=== PATIENT | female | born 1960 | race Caucasian/White ===

== ENCOUNTER 2017-04-06 14:48 | Emergency (ER) | payer OTHER ==
[2017-04-06] MEDS ORDERED: Ondansetron INJ* 2 MG/ML VIAL IV ONE (15:42)
[2017-04-06] MEDS: NS 0.9% 1000 ML* 2,000 ML IV ONE (16:09)
[2017-04-06 16:14] LABS: Hematocrit 42 % (35-47); Hemoglobin 14.5 g/dl (12.0-16.0); Mean Corpuscular HGB Conc 34 g/dl (31-36); Mean Corpuscular Hemoglobin 33 pg (27-31); Mean Corpuscular Volume 96 fL (80-97); Mean Platelet Volume 9 um3 (7.4-10.4); Red Blood Count 4.38 10^6/ul (4.0-5.4); Red Cell Distribution Width 14 % (10.5-15); White Blood Count 8.5 10^3/ul (3.5-10.8)
[2017-04-06 16:29] LABS: Albumin 3.1 g/dL (3.2-5.2); BUN/Creatinine Ratio 18.5 (8-20); C Reactive Protein 3.81 mg/L (< 5.00); Calcium 7.9 mg/dL (8.6-10.3); EGFR African American 94.8 (>60); EGFR Non-African American 73.7 (>60); Globulin 2.7 g/dL (2-4); Potassium 3.6 mmol/L (3.5-5.0); Total Bilirubin 2.7 mg/dL (0.2-1.0); Total Protein 5.8 g/dL (6.4-8.9)
--- NOTE | 2017-04-06 18:22 | RAD ---
HISTORY: Nausea vomiting and elevated liver enzymes COMPARISONS: None TECHNIQUE: Multiple transverse and longitudinal ultrasound images were obtained of the right upper quadrant. FINDINGS: LIVER: The liver exhibits homogenous increased echogenicity without suspicious focal mass or surface irregularity.. Normal hepatic and portal venous blood flow is duplicated with color flow imaging. There is no gross intrahepatic biliary duct dilatation. GALLBLADDER AND EXTRAHEPATIC BILIARY DUCT: Within the gallbladder lumen there is at least one 2.1 cm echogenic mobile stone. There is no pericholecystic fluid or gallbladder wall thickening. The common bile duct measures a maximum diameter of 5 mm. PANCREAS: The portions of the pancreas not obscured by bowel gas are normal in appearance. RIGHT KIDNEY: The right kidney is normal in size, morphology and echogenicity. AORTA AND IVC: The visualized portions are normal in appearance and not pathologically dilated. IMPRESSION: 1. Cholelithiasis without signs of biliary obstruction or acute inflammatory change. 2. Homogenously increased echogenicity of the liver could be seen in the setting of hepatic steatosis or other chronic infiltrative disease of the liver.
--- NOTE | 2017-04-06 18:53 | ED ---
Ady Martinez Abhishek, scribed for Lazaro Cazares MD on 04/06/17 at 1524 . Abdominal Pain/Female - HPI Summary HPI Summary: This patient is a 56 year old F presenting to [facility] with a chief complaint of abd pain since a few weeks. Pt states that C. Diff was tested recently and test is negative. The patient rates the pain 5/10 in severity. Symptoms aggravated by nothing. Symptoms alleviated by nothing. Blood test showed creatinine was elevated. Patient reports N/V (once last night and previously before), back pain , soft stool, and decreased appetite. Patient denies diarrhea. - History of Current Complaint Chief Complaint: EDAbdPain Stated Complaint: N/V Time Seen by Provider: 04/06/17 15:11 Onset/Duration: Gradual Onset, Lasting Weeks - few weeks ago, Still Present Timing: Constant Severity Initially: Moderate Severity Currently: Moderate Pain Intensity: 5 Pain Scale Used: 0-10 Numeric Aggravating Factor(s): Nothing Alleviating Factor(s): Nothing Associated Signs and Symptoms: Positive: Back Pain, Nausea, Vomiting, Other: - soft stool. Negative: Diarrhea Allergies/Adverse Reactions: Allergies Allergy/AdvReac Type Severity Reaction Status Date / Time Bacitracin [From Neosporin] Allergy Rash Verified 10/29/16 14:11 Latex Allergy Rash Verified 10/29/16 14:11 Neomycin [From Neosporin] Allergy Rash Verified 10/29/16 14:11 Polymyxin B [From Neosporin] Allergy Rash Verified 10/29/16 14:11 tapes Allergy Rash Uncoded 10/25/16 14:53 PMH/Surg Hx/FS Hx/Imm Hx Endocrine/Hematology History: Denies: Hx Diabetes Cardiovascular History: Reports: Hx Hypertension - ON MEDS Denies: Hx Pacemaker/ICD History: Denies: Hx Renal Disease Musculoskeletal History: Reports: Hx Arthritis, Other Musculoskeletal History - costochondritis Sensory History: Reports: Hx Contacts or Glasses Denies: Hx Hearing Aid Opthamlomology History: Reports: Hx Contacts or Glasses Neurological History: Reports: Hx Migraine Psychiatric History: Denies: Hx Panic Disorder - Cancer History Cancer Type, Location and Year: SKIN CARCINOMA FACE/ARMS/LEG. PRECANCEROUS CERVICAL Hx Chemotherapy: No Hx Radiation Therapy: No - Surgical History Surgery Procedure, Year, and Place: TMJ repair [place]. [place] [facility] [place] [facility] [place]ious Disease History: No Infectious Disease History: Reports: Hx Clostridium Difficile Denies: Traveled Outside the [place] in Last 30 Days - Family History Known Family History: Positive: Other - Blood cancer (sister) Negative: Cardiac Disease, Hypertension, Diabetes - Social History Alcohol Use: Occasionally Substance Use Type: Reports: None Hx Tobacco Use: No Smoking Status (MU): Never Smoked Tobacco Have You Smoked in the Last Year: No Review of Systems Constitutional: Negative Eyes: Negative ENT: Negative Cardiovascular: Negative Respiratory: Negative Positive: Abdominal Pain, Diarrhea, Nausea, Other - soft stool, and decreased appetite. Negative: Vomiting Genitourinary: Negative Positive: Other - back pain Skin: Negative Neurological: Negative Psychological: Normal All Other Systems Reviewed And Are Negative: Yes Physical Exam - Summary Physical Exam Summary: VITAL SIGNS: Reviewed. GENERAL: Patient is a well-developed and nourished female who is lying comfortable in the stretcher. ~Patient is not in any acute respiratory distress. HEAD AND FACE: Normocephalic and atraumatic. EYES: PERRLA, EOMI x 2, No injected conjunctiva. EARS: Hearing grossly intact. Ear canals and tympanic membranes are WNL. MOUTH: Oropharynx within normal limits. NECK: Supple, trachea is midline, no adenopathy, no JVD. CHEST: Symmetric, no tenderness at palpation LUNGS: Clear to auscultation bilaterally. No wheezing or crackles. CVS: RRR, S1 and S2 present, no murmurs or gallops appreciated. ABDOMEN: Soft, non-tender. No signs of distention. Positive bowel sounds. No rebound no guarding, and no masses palpated. No abdominal bruit or pulsations. EXTREMITIES: FROM in all major joints, no edema, no cyanosis or clubbing. NEURO: Alert and oriented x 3. No acute neurological deficits. Speech is normal. SKIN: Dry and warm Triage Information Reviewed: Yes Vital Signs On Initial Exam: Initial Vitals Temp Pulse Resp BP Pulse Ox 97.2 F 118 18 150/98 97 04/06/17 14:50 04/06/17 14:50 04/06/17 14:50 04/06/17 14:50 04/06/17 14:50 Vital Signs Reviewed: Yes - [place] Coma Scale Coma Scale Total: 15 Diagnostics - Vital Signs Vital Signs Temp Pulse Resp BP Pulse Ox 04/06/17 14:50 97.2 F 118 18 150/98 97 - Laboratory Lab Results: Lab Results 04/06/17 04/06/17 Range/Units 15:55 15:55 WBC 8.5 (3.5-10.8) 10^3/ul RBC 4.38 (4.0-5.4) 10^6/ul Hgb 14.5 (12.0-16.0) g/dl Hct 42 (35-47) % MCV 96 (80-97) fL MCH 33 H (27-31) pg MCHC 34 (31-36) g/dl RDW 14 (10.5-15) % Plt Count 243 (150-450) 10^3/ul MPV 9 (7.4-10.4) um3 Neut % (Auto) 76.3 (38-83) % Lymph % (Auto) 14.9 L (25-47) % Desha % (Auto) 7.7 (1-9) % Eos % (Auto) 0.1 (0-6) % Baso % (Auto) 1.0 (0-2) % Absolute Neuts (auto) 6.5 (1.5-7.7) 10^3/ul Absolute Lymphs (auto) 1.3 (1.0-4.8) 10^3/ul Absolute Monos (auto) 0.7 (0-0.8) 10^3/ul Absolute Eos (auto) 0 (0-0.6) 10^3/ul Absolute Basos (auto) 0.1 (0-0.2) 10^3/ul Absolute Nucleated RBC 0 10^3/ul Nucleated RBC % 0 Sodium 137 (133-145) mmol/L Potassium 3.6 (3.5-5.0) mmol/L Chloride 101 (101-111) mmol/L Carbon Dioxide 27 (22-32) mmol/L Anion Gap 9 (2-11) mmol/L BUN 15 (6-24) mg/dL Creatinine 0.81 (0.51-0.95) mg/dL Est GFR ( Amer) 94.8 (>60) Est GFR (Non-Af Amer) 73.7 (>60) BUN/Creatinine Ratio 18.5 (8-20) Glucose 114 H (70-100) mg/dL Calcium 7.9 L (8.6-10.3) mg/dL Total Bilirubin 2.70 H (0.2-1.0) mg/dL AST 591 H (13-39) U/L ALT 446 H (7-52) U/L Alkaline Phosphatase 84 (34-104) U/L C-Reactive Protein 3.81 (< 5.00) mg/L Total Protein 5.8 L (6.4-8.9) g/dL Albumin 3.1 L (3.2-5.2) g/dL Globulin 2.7 (2-4) g/dL Albumin/Globulin Ratio 1.1 (1-3) Lipase 20 (11.0-82.0) U/L Result Diagrams: 04/06/17 15:55 04/06/17 15:55 Lab Statement: Any lab studies that have been ordered have been reviewed, and results considered in the medical decision making process. - Ultrasound No standard instances Ultrasound Interpretation Completed By: Radiologist - Gallbladder US reveals 1. Cholelithiasis without signs of biliary obstruction or acute inflammatory change. 2. Homogenously increased echogenicity of the liver could be seen in the setting of hepatic steatosis or other chronic infiltrative disease of the liver. ED physician has reviewed this radiology report and agrees. Abdominal Pain Fem Course/Dx - Course Course Of Treatment: In the ED course an IV access was obtained. Patient was placed in a director of market intelligence. Patient was started with IV fluids. SHe was given Zofran for nausea and vomiting. Labs without any significant abnormality except for increased LDT. Corrected Calcium is normal. DUe to increased LFTs I order a hepatitis panel and it pending results. U/S shows no acute pathology. Full reports as above. After hydration and Zofran her symptoms resolved. Patient has an appointment with GI therefore she was strongly recommended to keep appointment. I discussed all the findings and test results with the patient. Patient was instructed to return to the emergency room immediately if any of the symptoms return or worsens. Plan of care was discussed with the patient and understands and agrees. All questions were answered at patient satisfaction. There were no further complaints or concerns. Lung exam before discharge: CTA B/L. Good air exchange. No wheezing or crackles heard. CVS: S1 and S2 present. No murmurs appreciated. Patient is alert and oriented x 3. Patient is hemodynamically stable. Patient will be discharged home with follow up PCP in the next 2-3 days - Diagnoses Provider Diagnoses: Nausea & vomiting, Dehydration, Abnormal liver function test Discharge - Discharge Plan Condition: Stable Disposition: HOME Prescriptions: Ondansetron TAB* [Zofran 4 MG Tab*] 4 mg PO Q6H PRN #10 tab PRN Reason: Vomiting Patient Education Materials: Dehydration (ED), Acute Nausea and Vomiting (ED) Referrals: Jordyn Lion MD [Medical Doctor] - (Follow up with PCP as needed) Additional Instructions: Patient also showed abnormal Liver function tests The documentation as recorded by the Ady hewitt Abhishek accurately reflects the service I personally performed and the decisions made by , Lazaro Cazares MD.
[2017-04-06 19:01] VITALS: BP 119/67
== END 2017-04-06 19:01 | disposition home or self-care (01) ==
LOC: ED 14:48
DX: R11.2 Nausea with vomiting, unspecified (principal); E86.0 Dehydration; R79.89 Other specified abnormal findings of blood chemistry; I10 Essential (primary) hypertension; K80.20 Calculus of gallbladder without cholecystitis without obstruction
CPT/HCPCS: 36415; 76705; 80053; 80074; 83690; 85025; 86140; 96360; 96374; 99282; J2405

== ENCOUNTER 2017-07-29 12:05 | Emergency (ER) | payer OTHER ==
[2017-07-29 12:29] VITALS: BP 124/87
--- NOTE | 2017-07-29 13:07 | RAD ---
INDICATION: Medial RIGHT hand pain and swelling following injury one week ago. Previous fracture in same region in 2005. COMPARISON: September 18, 2006 TECHNIQUE: AP, lateral, and oblique views RIGHT hand. REPORT: Normal articular alignment. Skin marker over the dorsal aspect of the diaphysis of the fifth metacarpal corresponding with the site of a healed fracture with apex dorsal ulnar angulation. No fracture evident. Mild dorsal ulnar soft tissue swelling at the level of the fifth metacarpal. IMPRESSION: Soft tissue swelling without evidence for a new fracture.
--- NOTE | 2017-07-29 13:55 | UC ---
Mauricio Martinez Jennifer, scribed for Karmen Escoto MD on 07/29/17 at 1311 . Hand/Wrist HPI - HPI Summary HPI Summary: The patient is a 56 year old female who presents with right hand injury, injury occurred in the last few days. Here today because she wants to see if there is a new fracture. The patient reports she broke her right hand 7-8 years ago. A few days ago, she hit the right side of her right hand on the side of the washing machine while struggling to pull a pair of jeans out. The patient states there is a lump on her hand that she is concerned of, especially since she is right-handed. The patient states she tried to bandage her hand, but it has been hurting no matter what she does. The patient denies elbow pain, although she states sometimes that hand pain can radiate up to her elbow. - History Of Current Complaint Chief Complaint: UCHeadInjury Stated Complaint: HAND INJURY Time Seen by Provider: 07/29/17 12:48 Hx Obtained From: Patient Mechanism Of Injury: Hit hand on side of washing machine as she was struggling to pull a pair of jeans out Onset/Duration: Sudden Onset, Lasting Days - few days, Still Present, Worse Since Severity Initially: Moderate Severity Currently: Moderate Pain Intensity: 6 Pain Scale Used: 0-10 Numeric Alleviating Factor(s): Nothing Associated Signs And Symptoms: Positive: Swelling - Allergies/Home Medications Allergies/Adverse Reactions: Allergies Allergy/AdvReac Type Severity Reaction Status Date / Time adhesive tape Allergy Rash Verified 07/29/17 12:29 bacitracin Allergy Rash Verified 07/29/17 12:29 [From Neosporin ([id number])] latex Allergy Rash Verified 07/29/17 12:29 neomycin Allergy Rash Verified 07/29/17 12:29 [From Neosporin ([id number])] polymyxin B Allergy Rash Verified 07/29/17 12:29 [From Neosporin ([id number])] tapes Allergy Rash Uncoded 10/25/16 14:53 PMH/Surg Hx/FS Hx/Imm Hx - Additional Past Medical History Additional PMH: C. diff Previously Healthy: No - see hpi. Neurological History: CVA - September 2016 - Surgical History Surgical History: Yes Surgery Procedure, Year, and Place: TMJ repair [place]. RIGHT achillies tendon [place] [facility] [place] [facility] [place] - Family History Known Family History: Positive: Other - Blood cancer (sister) Negative: Cardiac Disease, Hypertension, Diabetes - Social History Alcohol Use: Occasionally Substance Use Type: None Smoking Status (MU): Never Smoked Tobacco Have You Smoked in the Last Year: No Review of Systems Constitutional: Negative - Fever Skin: Negative Eyes: Negative ENT: Negative Respiratory: Negative Cardiovascular: Negative Gastrointestinal: Negative Genitourinary: Negative Motor: Decreased ROM Neurovascular: Other - see hpi Musculoskeletal: Other: - Swelling of right hand Neurological: Negative Psychological: Negative Is Patient Immunocompromised?: Yes All Other Systems Reviewed And Are Negative: Yes Physical Exam - Summary Physical Exam Summary: Appearance: Well-Nourished Eye Exam: Normal ENT Exam: Normal Respiratory Exam: Normal, no dyspnea, no tachypnea, normal respiratory rate Cardiovascular Exam: Normal Cardiovascular: Heart rate regular, good general skin color, good capillary refill Abdominal Exam: Normal Abdomen Description: Nontender, No Organomegaly, Soft Bowel Sounds: Present Musculoskeletal Exam: Grossly normal except R hand + swelling and pain over the dorsal R metacarpal area. + deformity. Not hot to touch or red at site of tenderness. Moves all 5 fingers, good clench, FROM wrist. + R / U pulses present. CR < 2 sec x 5 digits. Neurological Exam: Moves x 4 ext's. L facial droop, pt reports present since CVA last spring. Psychological Exam: Normal: conversing easily and appropriately Skin Exam: Normal: no visible or reported rash Triage Information Reviewed: Yes Appearance: Well-Appearing, Well-Nourished Vital Signs: Initial Vital Signs Temp 97.8 F 07/29/17 12:24 Pulse 112 07/29/17 12:24 Resp 18 07/29/17 12:24 BP 124/87 07/29/17 12:24 Pulse Ox 100 07/29/17 12:24 Vital Signs Reviewed: Yes Eye Exam: Normal - grossly normal ENT Exam: Other - visual inspection - Left facial droop, pt reports since spring 2016. Diagnostics - Radiology Hand XR Xray Interpretation: No Acute Changes - Soft tissue swelling without evidence for a new fracture. Dr. Escoto has reviewed this report. Radiology Interpretation Completed By: Radiologist Hand/Wrist Course/Dx - Course Course Of Treatment: Ms. Post has seen Dr. Ambriz in the past for her hand. She would like to see her again, will schedule appt. We reviewed the X-ray, no acute fracture. There is an old fracture R 5th . Report in [facility]. We discussed ulnar gutter splint (fiberglass), but she would rather have something that she can remove on her own. As such, cockup splint was placed by RN. Ms. Post likes it, as it will decrease general hand motion. Questions as posed answered to the best of my ability. - Differential Dx/Diagnosis Provider Diagnoses: Right hand contusion in the setting of previous hand (5th ) fx. Discharge - Discharge Plan Condition: Stable Disposition: HOME Patient Education Materials: Contusion in Adults (ED) Referrals: Reanna Truong NP [Primary Care Provider] - Additional Instructions: Your blood pressure was a little elevated during today's visit, 124/87. Please follow up with your primary care provider in 1-2 weeks. Follow up with your orthopedic surgeon, Dr. Parry, per routine for your shoulder. Follow up with your hand doctor, Dr. Ambriz, for your Right hand discomfort. Recommend in the next week if possible. Splint as needed for comfort. Seek medical attention for worse or new problems in the meantime. The documentation as recorded by the Mauricio hewitt Jennifer accurately reflects the service I personally performed and the decisions made by me, Karmen Escoto MD.
== END 2017-07-29 13:32 | disposition home or self-care (01) ==
LOC: UCEAST 12:05
DX: S60.221A Contusion of right hand, initial encounter (principal); W22.09XA Striking against other stationary object, initial encounter; Y93.E2 Activity, laundry; Y92.9 Unspecified place or not applicable; Z88.3 Allergy status to other anti-infective agents; Z91.040 Latex allergy status; Z91.048 Other nonmedicinal substance allergy status
CPT/HCPCS: 99212; G0463

== ENCOUNTER 2017-11-11 09:53 | Observation (INO) | payer OTHER ==
[2017-11-11 11:15] LABS: ABS Basophils 0 10^3/ul (0-0.2); ABS Eosinophils 0.1 10^3/ul (0-0.6); ABS Lymphocytes 1.4 10^3/ul (1.0-4.8); ABS Monocytes 0.5 10^3/ul (0-0.8); ABS Neutrophils 6.2 10^3/ul (1.5-7.7); ABS Nucleated RBC 0 10^3/ul; Hematocrit 44 % (35-47); Lymphocyte % 17.4 % (25-47); Mean Corpuscular HGB Conc 34 g/dl (31-36); Mean Corpuscular Hemoglobin 35 pg (27-31); Mean Corpuscular Volume 102 fL (80-97); Mean Platelet Volume 7.8 um3 (7.4-10.4); Nucleated Red Blood Cells % 0.1; Platelet Count 257 10^3/ul (150-450); Red Blood Count 4.36 10^6/ul (4.00-5.40); Red Cell Distribution Width 17 % (10.5-15); White Blood Count 8.3 10^3/ul (3.5-10.8)
[2017-11-11 11:23] LABS: INR 0.9 (0.77-1.02)
--- NOTE | 2017-11-11 11:33 | RAD ---
Indication: Weakness. 2 views of the chest are reviewed. No mediastinal shift is noted. Heart is of normal size and configuration. Lung tavarez are clear. IMPRESSION: No active cardiopulmonary disease is noted.
--- NOTE | 2017-11-11 11:34 | RAD ---
Indication: Numb hands and feet. CT of the brain was performed without IV contrast. Ventricular structures are midline. No midline shift is noted. The extra-axial spaces are unremarkable. There is no evidence of intracranial mass or hemorrhage. No other high or low density lesions are identified. Mastoid air cells and paranasal sinuses are otherwise unremarkable. IMPRESSION: No intracranial mass or hemorrhage is noted.
[2017-11-11] MEDS ORDERED: Magnesium Oxide TAB* 400 MG PO ONE (11:38)
--- NOTE | 2017-11-11 15:08 | ED ---
Keagan Martinez Simon, scribed for Rolly Medina on 11/11/17 at 1017 . Complex/Multi-Sys Presentation - HPI Summary HPI Summary: This patient is a 56 year old F presenting to [facility] with a chief complaint of bilateral numbness in feet, hands, and face since this AM upon waking. She notes the sx are still present. She endorses N/V/D. Pt denies CP, SOB, weakness , anxiety, depression and SI. Pt notes a recent stressor of being given an eviction notice 11/10/17. PMHx CVA a year ago, anxiety, C. Diff. - History Of Current Complaint Chief Complaint: EDGeneral Time Seen by Provider: 11/11/17 10:10 Hx Obtained From: Patient Onset/Duration: Gradual Onset, Lasting Hours, Still Present Timing: Constant, Hours Severity Currently: Moderate Severity Initially: Moderate Location: Negative Aggravating Factor(s): None noted Alleviating Factor(s): None noted Associated Signs And Symptoms: Positive: Nausea, Vomiting, Diarrhea, Other - bilater hand and feet, face numbness and tingling.. Negative: SOB, Chest Pain - Allergies/Home Medications Allergies/Adverse Reactions: Allergies Allergy/AdvReac Type Severity Reaction Status Date / Time adhesive tape Allergy Rash Verified 11/11/17 10:00 bacitracin Allergy Rash Verified 11/11/17 10:00 [From Neosporin ([id number])] latex Allergy Rash Verified 11/11/17 10:00 neomycin Allergy Rash Verified 11/11/17 10:00 [From Neosporin ([id number])] polymyxin B Allergy Rash Verified 11/11/17 10:00 [From Neosporin ([id number])] tapes Allergy Rash Uncoded 11/11/17 10:00 Home Medications: Home Medications Aspirin EC TAB* [Ecotrin EC Low Dose 81 MG*] 81 mg PO DAILY 11/11/17 [History Confirmed 11/11/17] Calcium Polycarbophil TAB* [Fibercon TAB*] 625 mg PO DAILY 11/11/17 [History Confirmed 11/11/17] Cetirizine* [ZyrTEC 10 MG TAB*] 10 mg PO DAILY 11/11/17 [History Confirmed 11/11] Escitalopram (NF) [Lexapro 20 mg (NF)] 20 mg PO DAILY 11/11/17 [History Confirmed 11/11/17] Fluticasone NASAL SPRAY 50MCG* [Flonase NASAL SPRAY 50MCG*] 2 spray BOTH NARES DAILY 11/11/17 [History Confirmed 11/11/17] Fluticasone-Salmeterol 500-50* [Advair Diskus 500-50*] 1 puff INH BID 11/11/17 [ History Confirmed 11/11/17] Losartan/Hydrochlorothiazide [Losartan Potassium/Hydroc 50-12.5 mg] 1 tab PO DAILY 11/11/17 [History Confirmed 11/11/17] Multivitamins/Minerals TAB* [Theragran/minerals TAB*] 1 tab PO DAILY 11/11/17 [ History Confirmed 11/11/17] Omeprazole CAP* [Prilosec CAP* 20 MG] 20 mg PO DAILY 11/11/17 [History Confirmed 11/11/17] Potassium Chlor TAB* [Klor Con ER TAB*] 10 meq PO DAILY 11/11/17 [History Confirmed 11/11/17] Propranolol LA CAP* [Inderal LA CAP*] 60 mg PO DAILY 11/11/17 [History Confirmed 11/11/17] Saccharomyces Boulardii [Florastorkids] 250 mg PO BID 11/11/17 [History Confirmed 11/11/17] PMH/Surg Hx/FS Hx/Imm Hx Endocrine/Hematology History: Denies: Hx Diabetes Cardiovascular History: Reports: Hx Hypertension - ON MEDS Denies: Hx Pacemaker/ICD History: Denies: Hx Renal Disease Musculoskeletal History: Reports: Hx Arthritis, Other Musculoskeletal History - costochondritis Sensory History: Reports: Hx Contacts or Glasses Denies: Hx Legally Blind, Hx Deafness, Hx Hearing Aid Opthamlomology History: Reports: Hx Contacts or Glasses EENT History: Denies: Hx Deafness Neurological History: Reports: Hx CVA - pt reported, Hx Migraine Psychiatric History: Reports: Hx Anxiety Denies: Hx Panic Disorder - Cancer History Cancer Type, Location and Year: SKIN CARCINOMA FACE/ARMS/LEG. PRECANCEROUS CERVICAL Hx Chemotherapy: No Hx Radiation Therapy: No - Surgical History Surgery Procedure, Year, and Place: TMJ repair [facility]. RIGHT achillies tendon repair [facility]. left knee arthroscopy 02/27 [facility] Infectious Disease History: No Infectious Disease History: Reports: Hx Clostridium Difficile Denies: Traveled Outside the [place] in Last 30 Days - Family History Known Family History: Positive: Other - Blood cancer (sister) Negative: Cardiac Disease, Hypertension, Diabetes - Social History Alcohol Use: Occasionally Substance Use Type: Reports: None Hx Tobacco Use: No Smoking Status (MU): Never Smoked Tobacco Have You Smoked in the Last Year: No Review of Systems Negative: Fever Negative: Chest Pain Negative: Shortness Of Breath Positive: Vomiting, Diarrhea, Nausea Positive: Paresthesia, Numbness. Negative: Weakness Negative: Anxious, Other - SI All Other Systems Reviewed And Are Negative: Yes Physical Exam - Summary Physical Exam Summary: Appearance: Well appearing, no pain distress Skin: warm, dry, reflects adequate perfusion Head/face: normal Eyes: EOMI, STONE ENT: normal Neck: supple, non-tender Respiratory: CTA, breath sounds present Cardiovascular: RRR, pulses symmetrical Abdomen: non-tender, soft Bowel: present Musculoskeletal: normal, strength/ROM intact Neuro: motor intact, A&Ox3 Triage Information Reviewed: Yes Vital Signs On Initial Exam: Initial Vitals Temp Pulse Resp BP Pulse Ox 96.8 F 110 20 149/114 98 11/11/17 09:54 11/11/17 09:54 11/11/17 09:54 11/11/17 09:54 11/11/17 09:54 Vital Signs Reviewed: Yes Diagnostics - Vital Signs Vital Signs Temp Pulse Resp BP Pulse Ox 11/11/17 09:54 96.8 F 110 20 149/114 98 - Laboratory Lab Results: Lab Results 11/11/17 11/11/17 11/11/17 Range/Units 11:01 11:01 11:01 WBC 8.3 (3.5-10.8) 10^3/ul RBC 4.36 (4.00-5.40) 10^6/ul Hgb 15.0 (12.0-16.0) g/dl Hct 44 (35-47) % MCV 102 H (80-97) fL MCH 35 H (27-31) pg MCHC 34 (31-36) g/dl RDW 17 H (10.5-15) % Plt Count 257 (150-450) 10^3/ul MPV 7.8 (7.4-10.4) um3 Neut % (Auto) 74.5 (38-83) % Lymph % (Auto) 17.4 L (25-47) % Glenn % (Auto) 6.5 (0-7) % Eos % (Auto) 1.0 (0-6) % Baso % (Auto) 0.6 (0-2) % Absolute Neuts (auto) 6.2 (1.5-7.7) 10^3/ul Absolute Lymphs (auto) 1.4 (1.0-4.8) 10^3/ul Absolute Monos (auto) 0.5 (0-0.8) 10^3/ul Absolute Eos (auto) 0.1 (0-0.6) 10^3/ul Absolute Basos (auto) 0 (0-0.2) 10^3/ul Absolute Nucleated RBC 0 10^3/ul Nucleated RBC % 0.1 INR (Anticoag Therapy) 0.90 (0.77-1.02) APTT 27.9 (26.0-36.3) seconds Sodium 138 (135-145) mmol/L Potassium TNP Chloride 102 (101-111) mmol/L Carbon Dioxide 26 (22-32) mmol/L Anion Gap 10 (2-11) mmol/L BUN 9 (6-24) mg/dL Creatinine 0.78 (0.51-0.95) mg/dL Est GFR ( Amer) 93.1 (>60) Est GFR (Non-Af Amer) 77.0 (>60) BUN/Creatinine Ratio 11.5 (8-20) Glucose 116 H (70-100) mg/dL Calcium 8.5 L (8.6-10.3) mg/dL Magnesium 1.6 L (1.9-2.7) mg/dL Total Bilirubin 0.60 (0.2-1.0) mg/dL AST TNP ALT 18 (7-52) U/L Alkaline Phosphatase 86 (34-104) U/L Total Creatine Kinase 48 (10-223) U/L Troponin I 0.00 (<0.04) ng/mL Total Protein 6.4 (6.4-8.9) g/dL Albumin 3.4 (3.2-5.2) g/dL Globulin 3.0 (2-4) g/dL Albumin/Globulin Ratio 1.1 (1-3) 11/11/17 Range/Units 13:03 WBC (3.5-10.8) 10^3/ul RBC (4.00-5.40) 10^6/ul Hgb (12.0-16.0) g/dl Hct (35-47) % MCV (80-97) fL MCH (27-31) pg MCHC (31-36) g/dl RDW (10.5-15) % Plt Count (150-450) 10^3/ul MPV (7.4-10.4) um3 Neut % (Auto) (38-83) % Lymph % (Auto) (25-47) % Glenn % (Auto) (0-7) % Eos % (Auto) (0-6) % Baso % (Auto) (0-2) % Absolute Neuts (auto) (1.5-7.7) 10^3/ul Absolute Lymphs (auto) (1.0-4.8) 10^3/ul Absolute Monos (auto) (0-0.8) 10^3/ul Absolute Eos (auto) (0-0.6) 10^3/ul Absolute Basos (auto) (0-0.2) 10^3/ul Absolute Nucleated RBC 10^3/ul Nucleated RBC % INR (Anticoag Therapy) (0.77-1.02) APTT (26.0-36.3) seconds Sodium (135-145) mmol/L Potassium 3.6 Chloride (101-111) mmol/L Carbon Dioxide (22-32) mmol/L Anion Gap (2-11) mmol/L BUN (6-24) mg/dL Creatinine (0.51-0.95) mg/dL Est GFR ( Amer) (>60) Est GFR (Non-Af Amer) (>60) BUN/Creatinine Ratio (8-20) Glucose (70-100) mg/dL Calcium (8.6-10.3) mg/dL Magnesium (1.9-2.7) mg/dL Total Bilirubin (0.2-1.0) mg/dL AST 26 ALT (7-52) U/L Alkaline Phosphatase (34-104) U/L Total Creatine Kinase (10-223) U/L Troponin I (<0.04) ng/mL Total Protein (6.4-8.9) g/dL Albumin (3.2-5.2) g/dL Globulin (2-4) g/dL Albumin/Globulin Ratio (1-3) Result Diagrams: 11/11/17 11:01 11/11/17 13:03 Lab Statement: Any lab studies that have been ordered have been reviewed, and results considered in the medical decision making process. - Radiology CXR Xray Interpretation: No Acute Changes Radiology Interpretation Completed By: Radiologist - No active cardiopulmonary disease is noted. Dr. Medina has reviewed this report. - CT Head CT Interpretation Completed By: Radiologist - No intracranial mass or hemorrhage is noted. Dr. Medina has reviewed this report. - EKG 1038 Cardiac Rate: NL - 86 EKG Rhythm: Sinus Rhythm ST Segment: Normal EKG Comparison: No Significant Change National Institutes Of Health - NIH Scale Level of Consciousness: Alert/Keenly Responsive Ask Patient the Month and His/Her Age: Both Correct Ask Pt to Open/Close Eyes and Insurance Verification Specialist/Release Non-Paretic Hand: Both Correctly Best Gaze (Only Horizontal Eye Movement): Normal Visual Field Testing: No Visual Loss Facial Paresis-Pt to Smile & Close Eyes or Grimace Symmetry: Normal/Symmetrical Motor Function - Right Arm: No Drift-Holds 10 Seconds Motor Function - Left Arm: No Drift-Holds 10 Seconds Motor Function - Right Leg: No Drift-Holds 10 Seconds Motor Function - Left Leg: No Drift-Holds 10 Seconds Limb Ataxia-Must be out of Proportion to Weakness Present: Absent Sensory (Use Pinprick to Test Arms/Legs/Trunk/Face): Pinprick Less on Affected Best Language (Describe Picture, Name Items): No Aphasia Dysarthria (Read Several Words): Normal Extinction and Inattention: No Abnormality Total Score: 1 Complex Multi-Symp Course/Dx Course Of Treatment: A 56-year-old F presents to the ED with a CC of numbness since waking this AM. (+) N/V/D. (-) Anxiety, depression, SI, CP, SOB. A CXR was (-). An EKG reveals NSR, no acute changes. A CT brain was (-). In the ED course, pt was given MgO. Blood work/UA obtained. Dr. Gilmore, [id number], reccomended admit for stroke work-up. - Diagnoses Differential Diagnoses/HQI/PQRI: CVA, Other - intra cerebral bleeding Provider Diagnoses: TIA (transient ischemic attack) - Physician Notifications Discussed Care Of Patient With: Lewis Gilmore Time Discussed With Above Provider: 14:20 Instructed by Provider To: Other - Dr. Gilmore recommended admission for stroke work up. - Critical Care Time Critical Care Time: 30-74 min Discharge - Sign-Out/Discharge Documenting (check all that apply): Discharge/Admit/Transfer - admit - Discharge Plan Condition: Fair Disposition: ADMITTED TO [facility] Referrals: Reanna Truong NP [Primary Care Provider] - - Billing Disposition and Condition Condition: FAIR Disposition: Admitted to [facility] Consult Consult: 14[address] Dr. [place], accepted admission to [facility]. The documentation as recorded by the Keagan hewitt Simon accurately reflects the service I personally performed and the decisions made by , Rolly Medina.
--- NOTE | 2017-11-11 16:09 | CONSULT ---
Consult Consult: Consult report dictated. In brief, this is a 56-year-old female who has history of right cerebellar stroke who presented with left facial numbness, intermittent hand and feet paresthesia, and headache. I suspect the patient has: 1. complicated migraine headaches 2. Cervical spondylosis with myelopathy. 3. There is a hypodensity in the right occipital lobe that should be further evaluated. Plan: MRI brain without contrast MRI c spine without contrast Treat headaches with IV magnesium and Tylenol. please do no use triptan therapy given history of stroke. I will continue to follow.
[2017-11-11] MEDS ORDERED: NS 0.9% 1000 ML* 1,000 ML IV SCH (16:15)
[2017-11-11] MEDS ORDERED: Enoxaparin(*) 40 MG/0.4 ML SYR SUBCUT SCH (17:00)
--- NOTE | 2017-11-11 19:50 | RAD ---
Indication: Bilateral hands and feet numbness and tingling. Vomiting and diarrhea last night. Comparison: November 11, 2017 CT and October 18, 2016 MRI. Technique: NOBOTa 1.5 Crystal NE158A with GEM suite. MRI brain without contrast. Report: Diffusion series is negative for acute or subacute ischemia. Susceptibility series is negative for stigmata of hemosiderin deposition to indicate previous hemorrhage. Unremarkable cerebral sulci, ventricles, and basal cisterns. Minimal focus of encephalomalacia at the inferior RIGHT cerebellar hemisphere corresponding with the site of ischemic stroke on the October 18, 2016 MRI. Otherwise unremarkable morphology and patterns of signal intensity throughout the posterior fossa and cerebrum. Preserved major intracranial flow-voids. Unremarkable orbital contents. Mild mucosal thickening at the RIGHT maxillary and sphenoid sinuses. Negative for paranasal sinus fluid levels. Minimal LEFT mastoid effusions. No suspicious calvarial or skull base lesion evident. Unremarkable scalp. IMPRESSION: 1. No acute intracranial process evident. 2. Minimal focus of encephalomalacia at the inferior RIGHT cerebellar hemisphere corresponding with the site of ischemic stroke on the October 18, 2016 MRI. 3. Mild mucosal thickening at the RIGHT maxillary and sphenoid sinuses. Negative for paranasal sinus fluid levels. Minimal LEFT mastoid effusions.
--- NOTE | 2017-11-11 20:00 | RAD ---
Indication: Bilateral hand and feet numbness and tingling. Vomiting and diarrhea last night. Comparison: June 15, 2010 CT. Technique: Agentruna 1.5 Crystal MH684F with GEM suite. Noncontrast MRI cervical spine. Report: The cervical spinal cord is normal in patterns of signal intensity. No conspicuous spinal cord lesions or syringohydromyelia. Bone marrow signal is normal throughout. Negative for fracture or spondylolysis at any level. Normal vertebral alignment accounting for exam positioning without spondylolisthesis or subluxation at any level. C2-C3: Unremarkable for age. C3-C4: Uncinate process spurring and facet joint osteoarthritis results in moderate bilateral foraminal stenosis with interval worsening. C4-C5: Unremarkable for age. C5-C6: Moderate dorsal disc osteophyte complex results in partial effacement of the LEFT greater than RIGHT anterior CSF space. Uncinate process spurring results in mild RIGHT and moderate LEFT foraminal stenosis with interval worsening. C6-C7: Mild dorsal disc osteophyte complex results in partial effacement of the ventral CSF space. Disc protrusion results in moderate RIGHT foraminal stenosis with interval worsening. C7-T1: Unremarkable for age. IMPRESSION: # Moderate bilateral C3-C4 foraminal stenosis. Mild RIGHT and moderate LEFT C5-C6 foraminal stenosis. Moderate RIGHT C6-C7 foraminal stenosis. # Mild C5-C6 and C6-C7 acquired central canal stenosis.
[2017-11-11] MEDS: Acetaminophen TAB* 325 MG PO PRN (21:10)
[2017-11-11] MEDS: Mometasone/Formoter 200/5 MDI INH SCH (21:16)
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
[2017-11-12] MEDS: traMADol TAB* 50 MG PO PRN ×2 (00:07→08:17)
[2017-11-12] MEDS ORDERED: Losartan TAB* 25 MG PO SCH (09:00)
[2017-11-12] MEDS ORDERED: Propranolol LA CAP* 60 MG PO SCH (09:00)
[2017-11-12] MEDS ORDERED: Fluticasone NASAL SPRAY 50MCG* 16 gm SPRAY BTL BOTH NARES SCH (09:00)
[2017-11-12] MEDS ORDERED: Cetirizine* 10 MG TAB PO SCH (09:00)
[2017-11-12] MEDS ORDERED: Citalopram TAB* 40 MG PO SCH (09:00)
[2017-11-12] MEDS ORDERED: Calcium Polycarbophil TAB* 625 MG PO SCH (09:00)
[2017-11-12] MEDS ORDERED: Potassium Chlor TAB* 10 MEQ TAB.ER PO SCH (09:00)
[2017-11-12] MEDS ORDERED: Omeprazole CAP* 20 MG PO SCH (09:00)
[2017-11-12] MEDS ORDERED: Multivitamins/Minerals TAB PO SCH (09:00)
[2017-11-12] MEDS ORDERED: Hydrochlorothiazide TAB* 25 MG PO SCH (09:00)
[2017-11-12] MEDS ORDERED: Aspirin EC TAB* 81 MG TAB.EC PO SCH (09:00)
[2017-11-12] MEDS: Mometasone/Formoter 200/5 MDI INH SCH (09:27)
[2017-11-12] MEDS ORDERED: Cyanocobalamin INJ * 1,000 MCG/ML VIAL 1 ML VIAL IM ONE (10:00)
[2017-11-12] MEDS: Acetaminophen TAB* 325 MG PO PRN (10:42)
[2017-11-12 12:02] VITALS: BP 167/102
--- NOTE | 2017-11-13 01:01 | PN ---
NEUROLOGY PROGRESS NOTE: DATE OF SERVICE: 11/12/17 - ROOM #445 PRIMARY PHYSICIAN: Johnnie Montana MD. Neurology is following for the evaluation of headaches, facial numbness as well as paresthesias in the hand. SUBJECTIVE: The patient has done well overnight. She slept well. She has decrease in her headaches. She does not have any facial numbness nor does she have any paresthesias in the hand. REVIEW OF SYSTEMS: She denied any chest pain, shortness of breath or palpitations. MEDICATIONS: 1. Acetaminophen 650 mg every 6 hours as needed for pain. 2. Aspirin 81 mg daily. 3. Calcium polycarbophil 625 mg p.o. daily. 4. Cetirizine 10 mg p.o. daily. 5. Celexa 40 mg daily. 6. Enoxaparin 40 mg subcutaneous daily for DVT prophylaxis. 7. Fluticasone 2 sprays both nares daily. 8. Hydrochlorothiazide 12.5 mg p.o. daily. 9. Losartan 50 mg p.o. daily. 10. Omeprazole 20 mg p.o. daily. 11. Propranolol 60 mg p.o. daily. 12. Tramadol 50 mg p.o. every 6 hours p.r.n. for pain. PHYSICAL EXAMINATION: Vitals: Temperature of 97.7, pulse of 79, respiratory rate of 16, oxygen saturation of 100, blood pressure of 165/99. General: Well - appearing female, in no acute distress, resting comfortably in a chair next to her friend, who came to visit today. Head is normocephalic with no tenderness in the superficial temporal artery and occipital notch region bilaterally. Eyes: Conjunctivae/corneas are clear with no scleral icterus. Neck is supple and symmetrical with no nuchal rigidity. She has no carotid bruits. Lungs are clear to auscultation bilaterally. She has non-labored breathing. Neurological Examination: Mental status: Awake, alert, oriented to person, place, time and general circumstances. Cranial Nerves: Pupils are equal, round, reactive to light. Extraocular muscles are intact. No facial asymmetry. Sensation is intact in her face bilaterally. There is no facial droop. She is able to hear throughout the history process. She has no abnormal movements or pronator drift. She has full strength throughout the upper and lower extremities. Reflexes are 3+ throughout and 2 at the ankles bilaterally. Sensation is intact to light touch, pinprick and temperature throughout. Coordination: Normal [id number]. Gait is wide based and no ataxia. DIAGNOSTIC AND LABORATORY TESTING: There are no new labs today, except for LDL of 33, vitamin B12 of 190 and TSH of 3.12. Imaging studies: MRI of the brain showed no evidence of acute intracranial abnormalities. She has minimal focus of encephalomalacia in the inferior right cerebellar hemisphere as well as the right occipital lobe from a previous stroke. MRI of the cervical spine without contrast showed a multilevel degenerative disk disease with moderate bilateral C3-C4 foraminal stenosis and mild right and moderate left C5-C6 foraminal stenosis. There is moderate right C6-C7 foraminal stenosis. There is also mild C5-C6 and C6-C7 acquired central canal stenosis. There is no spinal cord compression. ASSESSMENT AND RECOMMENDATION: Damaris Post is a 56-year-old female with history of remote right cerebellar and occipital stroke, who presented with chronic migraine headaches, left facial numbness, intermittent numbness in the distal upper and lower extremities. MRI of the brain and C-spine show no acute abnormalities to explain the patient's symptoms. The patient was found to have a low vitamin B12 level. 1. Complicated migraines - This is probably the explanation of the left facial numbness, which has resolved after her headaches have improved. I recommend continued preventative therapy with propranolol and starting magnesium oxide 400 mg and riboflavin 100 mg daily. She would not be a candidate for Triptan therapy given the history of stroke. Taking Tylenol 650 mg p.o. every 6 hours as needed for her headache would be recommended at this point. 2. Vitamin B12 deficiency - I started her on intramuscular cyanocobalamin 1000 mcg intramuscular supplements, which she should have every month for the next 6 months. In addition, she should take cyanocobalamin 1000 mcg oral every day. 3. Chronic neck pain with known degenerative disk disease and spinal canal narrowing at the C5-C6 level - continue followup with Pain Management. I also would like her to establish care with our neurology group. She should contact the [facility] within 6 to 8 weeks for an appointment. 4. History of anxiety, on Celexa. 5. Remote history of ischemic stroke - on aspirin. No further neurological recommendation at this point. The patient can be discharged from the neurology standpoint. [id number]/[facility] #: [id number] [facility] CENTERFrankie
--- NOTE | 2017-11-13 08:22 | DS ---
CC: Reanna Truong NP * DISCHARGE SUMMARY: DATE OF ADMISSION: 11/11/17 DATE OF DISCHARGE: 11/12/17 PRIMARY CARE PROVIDER: Reanna Truong NP PRIMARY DIAGNOSES: 1. Migraine with complicated or complex aura. 2. Vitamin B12 deficiency. SECONDARY DIAGNOSES: Include: 1. History of Clostridium colitis. 2. History of cerebrovascular accident in September of 2016. 3. Hypertension. 4. Migraine with aura. 4. Asthma. MEDICATIONS ON DISCHARGE: Include: 1. Advair 500/50 one puff twice daily. 2. Fluticasone 2 sprays both nares daily. 3. Florastor Kids 250 mg twice daily. 4. Potassium chloride 10 mEq daily. 5. Omeprazole 20 mg daily. 6. Fibercon 625 mg daily. 7. Propranolol LA 60 mg daily. 8. Multivitamin 1 tab daily. 9. Losartan/hydrochlorothiazide 50/12.5 mg daily. 10. Zyrtec 10 mg daily. 11. Aspirin 81 mg daily. 12. Lexapro 20 mg daily. 13. Riboflavin 100 mg daily. 14. Magnesium oxide 800 mg daily. 15. Hydromorphone/acetaminophen 5/325 one tab every 4 hours as needed. 16. Vitamin B12 1000 mcg daily. 17. Vitamin B12 injection 1000 mcg IM every 30 days. Please note the addition of vitamin B12, magnesium oxide, and riboflavin. PERTINENT LABORATORY DATA: Vitamin B12 level 190, total cholesterol 127, LDL 33 , HDL is 66, TSH is 3.12. PERTINENT IMAGING STUDIES: Cervical MRI, impression: Moderate bilateral C3-C4 foraminal stenosis with mild right and moderate left C5-C6 foraminal stenosis, moderate right C6-C7 foraminal stenosis, mild C5-C6 and C6-C7 acquired central canal stenosis. Brain MRI, impression: No acute intracranial process, minimal focus of encephalomalacia at the inferior right cerebellar hemisphere corresponding with the side of ischemic stroke in October 2016. Mild mucosal thickening at the right maxillary and sphenoid sinuses. Negative paranasal sinus fluid levels. Minimal left mastoid effusions. HISTORY OF PRESENT ILLNESS/HOSPITAL COURSE: This is a 56-year-old female with past medical history as outlined in the history of present illness on day of admission including right cerebellar CVA in September of 2016 as well as migraines presented to the hospital with left facial numbness as well as bilateral arms paresthesias and bilateral lower extremity paresthesias. There was concern for a cervical myelopathy as well as concern for a CVA in the setting of her symptoms, although 1 unifying intracranial location will be difficult to unify her desperate symptoms. However, the patient did have a recent CVA in September of 2016 that was thought prudent to admit her, monitor her, and evaluate for underlying cerebrovascular accident. Above imaging was negative for cervical myelopathy as well as intracranial accident. The patient had a headache on presentation and the following day on the day of discharge headache had resolved along with new symptoms including her lower extremity paresthesias and left facial numbness. This is thought that a complicated migraine was the etiology of her underlying symptoms. Additionally, the patient recently received news that she was being evicted from the home she is currently living by her 6 siblings. This increased stressors certainly and may have contributed to either the migraine and/or symptoms and isolation. The patient was seen in conjunction with Neurology and she was started on magnesium as well as riboflavin and continued on propranolol as a prophylactic migraine medications. The patient was encouraged to follow up with Neurology in 4 to 6 weeks. Additionally, B12 level was noted to be low and she received 1 IM injection of 1000 mcg when hospitalized and was started on 1000 mcg daily on discharge. There were no complications during this course of the hospital stay. At followup please; 1. Evaluate for continued resolution of presenting symptoms. 2. Evaluate for continued migraine control. 3. Evaluate for followup with Neurology. 4. Continue to follow B12 levels as indicated above. 5. No other specific labs or vitals that need followup. Reasons to return to the hospital including but not limited to recurrent or worsening symptoms including asymmetric or numbness, weakness, or other paresthesias, difficulty speaking, confusion, headache, nausea, vomiting, lightheadedness, loss of consciousness, near loss of consciousness, chest pain or shortness of breath, bleeding from any areas discussed with the patient. She acknowledged understanding. TIME SPENT: Greater than 60 minutes was spent on discharge of this patient; greater than half was spent [id number] with the patient. [id number]/[facility] #: [id number] [facility]
[2017-11-13] MEDS ORDERED: Cyanocobalamin TAB* 500 MCG PO SCH (09:00)
[2017-12-12] MEDS ORDERED: Cyanocobalamin INJ * 1,000 MCG/ML VIAL 1 ML VIAL IM SCH (10:00)
== END 2017-11-12 15:30 | disposition home or self-care (01) ==
LOC: ED 09:53 → MEDTELE 16:03
PROVIDERS: ADMIT Internal Medicine; ATTEND Internal Medicine
DX: G43.109 Migraine with aura, not intractable, without status migrainosus (principal); E53.8 Deficiency of other specified B group vitamins; Z86.73 Personal history of transient ischemic attack (TIA), and cerebral infarction without residual deficits; I10 Essential (primary) hypertension; J45.909 Unspecified asthma, uncomplicated; Z79.82 Long term (current) use of aspirin; R19.7 Diarrhea, unspecified
CPT/HCPCS: 36415; 70450; 70551; 71046; 72141; 80053; 80061; 82550; 82607; 83036; 83735; 84443; 84484; 85025; 85610; 85730; 93005; 94640; 99283; A9270-GY; G0378; J1650; J3420

== ENCOUNTER 2018-03-16 13:13 | Emergency (ER) | payer OTHER ==
[2018-03-16 15:59] LABS: ABS Basophils 0 10^3/ul (0-0.2); ABS Eosinophils 0.2 10^3/ul (0-0.6); ABS Lymphocytes 2.1 10^3/ul (1.0-4.8); ABS Monocytes 0.6 10^3/ul (0-0.8); ABS Neutrophils 5.6 10^3/ul (1.5-7.7); ABS Nucleated RBC 0 10^3/ul; Eosinophil % 2.7 % (0-6); Hematocrit 43 % (35-47); Hemoglobin 14.8 g/dl (12.0-16.0); Mean Corpuscular HGB Conc 34 g/dl (31-36); Mean Corpuscular Hemoglobin 34 pg (27-31); Mean Corpuscular Volume 100 fL (80-97); Mean Platelet Volume 8.7 um3 (7.4-10.4); Nucleated Red Blood Cells % 0.3; Platelet Count 217 10^3/ul (150-450); Red Blood Count 4.33 10^6/ul (4.00-5.40); Red Cell Distribution Width 16 % (10.5-15); White Blood Count 8.6 10^3/ul (3.5-10.8)
[2018-03-16 16:13] LABS: INR 0.88 (0.77-1.02)
[2018-03-16 16:21] LABS: EGFR Non-African American 77.8 (>60)
[2018-03-16] MEDS ORDERED: NS 0.9% 1000 ML* 1,000 ML IV ONE (18:13)
--- NOTE | 2018-03-16 18:15 | ED ---
Abdominal Pain/Female - HPI Summary HPI Summary: This pt is a 57 y/o female presenting to [facility] c/o abd pain and diarrhea. 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 Pt states she had 10 to 12 episodes of diarrhea each day this past weekend. This morning pt had soft stool. Her abd pain is aggravated with eating. Denies nausea, vomiting, chest pain, SOB, fever. Her last antibiotic was on 03/02/18. Denies drug, alcohol, or tobacco use. - History of Current Complaint Chief Complaint: EDGeneral Stated Complaint: ABD PAIN Time Seen by Provider: 03/16/18 18:02 Hx Obtained From: Patient Onset/Duration: Lasting Days, Still Present Timing: Days Severity Currently: Moderate Pain Intensity: 4 Pain Scale Used: 0-10 Numeric Location: Diffuse Radiates: No Aggravating Factor(s): Nothing Alleviating Factor(s): Nothing Associated Signs and Symptoms: Positive: Diarrhea. Negative: Fever, Chest Pain , Constipation, Blood in Stool, Nausea, Vomiting Allergies/Adverse Reactions: Allergies Allergy/AdvReac Type Severity Reaction Status Date / Time adhesive tape Allergy Rash Verified 03/16/18 13:35 bacitracin Allergy Rash Verified 03/16/18 13:35 [From Neosporin ([id number])] latex Allergy Rash Verified 11/11/17 10:00 neomycin Allergy Rash Verified 03/16/18 13:35 [From Neosporin ([id number])] polymyxin B Allergy Rash Verified 03/16/18 13:35 [From Neosporin ([id number])] tapes Allergy Rash Uncoded 03/16/18 13:35 PMH/Surg Hx/FS Hx/Imm Hx Endocrine/Hematology History: Denies: Hx Diabetes Cardiovascular History: Reports: Hx Hypertension - ON MEDS Denies: Hx Pacemaker/ICD Respiratory History: Reports: Hx Asthma History: Denies: Hx Renal Disease Musculoskeletal History: Reports: Hx Arthritis, Other Musculoskeletal History - costochondritis Sensory History: Reports: Hx Contacts or Glasses Denies: Hx Legally Blind, Hx Deafness, Hx Hearing Aid Opthamlomology History: Reports: Hx Contacts or Glasses Denies: Hx Legally Blind Neurological History: Reports: Hx CVA - pt reported, Hx Migraine Psychiatric History: Reports: Hx Anxiety, Hx Depression Denies: Hx Panic Disorder - Cancer History Cancer Type, Location and Year: SKIN CARCINOMA FACE/ARMS/LEG. PRECANCEROUS CERVICAL Hx Chemotherapy: No Hx Radiation Therapy: No - Surgical History Surgery Procedure, Year, and Place: TMJ repair [place]. RIGHT achillies tendon repair [facility]. left knee arthroscopy 02/27 [facility] Infectious Disease History: No Infectious Disease History: Reports: Hx Clostridium Difficile Denies: Traveled Outside the [place] in Last 30 Days - Family History Known Family History: Positive: Other - Blood cancer (sister) Negative: Cardiac Disease, Hypertension, Diabetes - Social History Alcohol Use: Occasionally Substance Use Type: Reports: None Hx Tobacco Use: No Smoking Status (MU): Never Smoked Tobacco Have You Smoked in the Last Year: No Review of Systems Negative: Fever, Chills Negative: Chest Pain Negative: Shortness Of Breath Positive: Abdominal Pain, Diarrhea. Negative: Vomiting, Nausea All Other Systems Reviewed And Are Negative: Yes Physical Exam - Summary Physical Exam Summary: Appearance: Well appearing, no pain distress Skin: warm, dry, reflects adequate perfusion Head/face: normal Eyes: EOMI, STONE ENT: normal Neck: supple, nontender Respiratory: CTA, breath sounds present Cardiovascular: RRR, pulses symmetrical Abdomen: soft, left lower quadrant tenderness Bowel: present Musculoskeletal: normal, strength/ROM intact Neuro: normal, sensory motor intact, A&Ox3 Triage Information Reviewed: Yes Vital Signs On Initial Exam: Initial Vitals Temp Pulse Resp BP Pulse Ox 98.8 F 90 18 161/73 97 03/16/18 13:20 03/16/18 13:20 03/16/18 13:20 03/16/18 13:20 03/16/18 13:20 Vital Signs Reviewed: Yes Diagnostics - Vital Signs Vital Signs Temp Pulse Resp BP Pulse Ox 03/16/18 17:45 80 156/108 95 03/16/18 17:44 83 96 03/16/18 17:10 97.9 F 83 17 170/100 100 03/16/18 17:08 97.8 F 83 17 170/100 97 03/16/18 13:20 98.8 F 90 18 161/73 97 - Laboratory Lab Results: Lab Results 03/16/18 03/16/18 03/16/18 Range/Units 15:51 15:51 15:51 WBC 8.6 (3.5-10.8) 10^3/ul RBC 4.33 (4.00-5.40) 10^6/ul Hgb 14.8 (12.0-16.0) g/dl Hct 43 (35-47) % MCV 100 H (80-97) fL MCH 34 H (27-31) pg MCHC 34 (31-36) g/dl RDW 16 H (10.5-15) % Plt Count 217 (150-450) 10^3/ul MPV 8.7 (7.4-10.4) um3 Neut % (Auto) 65.5 (38-83) % Lymph % (Auto) 24.0 L (25-47) % [place] % (Auto) 7.3 H (0-7) % Eos % (Auto) 2.7 (0-6) % Baso % (Auto) 0.5 (0-2) % Absolute Neuts (auto) 5.6 (1.5-7.7) 10^3/ul Absolute Lymphs (auto) 2.1 (1.0-4.8) 10^3/ul Absolute Monos (auto) 0.6 (0-0.8) 10^3/ul Absolute Eos (auto) 0.2 (0-0.6) 10^3/ul Absolute Basos (auto) 0 (0-0.2) 10^3/ul Absolute Nucleated RBC 0 10^3/ul Nucleated RBC % 0.3 INR (Anticoag Therapy) (0.77-1.02) APTT (26.0-36.3) seconds Sodium 137 (135-145) mmol/L Potassium 3.6 (3.5-5.0) mmol/L Chloride 100 L (101-111) mmol/L Carbon Dioxide 29 (22-32) mmol/L Anion Gap 8 (2-11) mmol/L BUN 8 (6-24) mg/dL Creatinine 0.77 (0.51-0.95) mg/dL Est GFR ( Amer) 94.2 (>60) Est GFR (Non-Af Amer) 77.8 (>60) BUN/Creatinine Ratio 10.4 (8-20) Glucose 103 H (70-100) mg/dL Lactic Acid 0.8 (0.5-2.0) mmol/L Calcium 9.2 (8.6-10.3) mg/dL Total Bilirubin 0.90 (0.2-1.0) mg/dL AST 39 (13-39) U/L ALT 33 (7-52) U/L Alkaline Phosphatase 93 (34-104) U/L Troponin I 0.00 (<0.04) ng/mL Total Protein 7.1 (6.4-8.9) g/dL Albumin 3.8 (3.2-5.2) g/dL Globulin 3.3 (2-4) g/dL Albumin/Globulin Ratio 1.2 (1-3) Lipase 36 (11.0-82.0) U/L 03/16/18 Range/Units 15:51 WBC (3.5-10.8) 10^3/ul RBC (4.00-5.40) 10^6/ul Hgb (12.0-16.0) g/dl Hct (35-47) % MCV (80-97) fL MCH (27-31) pg MCHC (31-36) g/dl RDW (10.5-15) % Plt Count (150-450) 10^3/ul MPV (7.4-10.4) um3 Neut % (Auto) (38-83) % Lymph % (Auto) (25-47) % [place] % (Auto) (0-7) % Eos % (Auto) (0-6) % Baso % (Auto) (0-2) % Absolute Neuts (auto) (1.5-7.7) 10^3/ul Absolute Lymphs (auto) (1.0-4.8) 10^3/ul Absolute Monos (auto) (0-0.8) 10^3/ul Absolute Eos (auto) (0-0.6) 10^3/ul Absolute Basos (auto) (0-0.2) 10^3/ul Absolute Nucleated RBC 10^3/ul Nucleated RBC % INR (Anticoag Therapy) 0.88 (0.77-1.02) APTT 31.2 (26.0-36.3) seconds Sodium (135-145) mmol/L Potassium (3.5-5.0) mmol/L Chloride (101-111) mmol/L Carbon Dioxide (22-32) mmol/L Anion Gap (2-11) mmol/L BUN (6-24) mg/dL Creatinine (0.51-0.95) mg/dL Est GFR ( Amer) (>60) Est GFR (Non-Af Amer) (>60) BUN/Creatinine Ratio (8-20) Glucose (70-100) mg/dL Lactic Acid (0.5-2.0) mmol/L Calcium (8.6-10.3) mg/dL Total Bilirubin (0.2-1.0) mg/dL AST (13-39) U/L ALT (7-52) U/L Alkaline Phosphatase (34-104) U/L Troponin I (<0.04) ng/mL Total Protein (6.4-8.9) g/dL Albumin (3.2-5.2) g/dL Globulin (2-4) g/dL Albumin/Globulin Ratio (1-3) Lipase (11.0-82.0) U/L Result Diagrams: 03/16/18 15:51 03/16/18 15:51 Lab Statement: Any lab studies that have been ordered have been reviewed, and results considered in the medical decision making process. Abdominal Pain Fem Course/Dx - Course Course Of Treatment: Pt is a 57 y/o female who presents with abd pain and diarrhea. 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 Pt states she had 10 to 12 episodes of diarrhea each day this past weekend. This morning pt had soft stool. Bloodwork was obtained. CT abdomen/pelvis was ordered. At this point the CT is still pending. Pt will be signed out to Dr. Jolly, pending disposition, awaiting CT results. - Diagnoses Provider Diagnoses: Abdominal pain Discharge - Sign-Out/Discharge Documenting (check all that apply): Sign-Out Patient Signing out patient TO: Carlos A Jolly - pending dispo and CT abd/pel - Discharge Plan Condition: Stable Referrals: Reanna Truong, [employer] [Primary Care Provider] - - Billing Disposition and Condition Condition: STABLE - Attestation Statements Document Initiated by Scribe: Yes Documenting Scribe: Amna Ibarra Provider For Whom Scribe is Documenting (Include Credential): Rolly Medina MD Scribe Attestation: I, Amna Ibarra, scribed for Rolly Medina MD on 03/16/18 at 1832. Scribe Documentation Reviewed: Yes Provider Attestation: The documentation as recorded by the scribe, Amna Ibarra accurately reflects the service I personally performed and the decisions made by me, Rolly Medina MD
[2018-03-16] MEDS ORDERED: Iohexol 300* (CONTRAST) 10 ML SDV IV ONE (18:47)
--- NOTE | 2018-03-16 18:59 | ED ---
Progress - Progress Note Progress Note: Patient signed out from Dr. Medina pending CT A/P. The CT A/P showed: No evidence for acute appendicitis. Colonic diverticulitis without evidence for acute diverticulitis. I spoke with the patient and examined her, her abdomen is benign. Her lab restudies and CT scan of the abdomen are both unremarkable. I gave her some medication for pain to cover her until she can see Dr. Bee, and he started her on oral vancomycin. Course/Dx - Course Course Of Treatment: Patient signed out from Dr. Medina pending CT A/P. The CT A /P showed: No evidence for acute appendicitis. Colonic diverticulitis without evidence for acute diverticulitis. Dr. Jolly spoke with Dr. Seo about lab results and CTs. Recommends starting pt on oral abx for c diff. I spoke with the patient and examined her, her abdomen is benign. Her lab restudies and CT scan of the abdomen are both unremarkable. I gave her some medication for pain to cover her until she can see Dr. Bee, and he started her on oral vancomycin. The patient will be DC home and is agreeable with this plan. Discharge - Sign-Out/Discharge Documenting (check all that apply): Patient Departure - Discharge Plan Condition: Good Disposition: HOME Prescriptions: Oxycodone TAB(NF) [Oxycodone HCl 10 MG] 10 mg PO Q6H PRN #10 tab MDD 3 tabs PRN Reason: Pain - Abdominal Vancomycin CAP* 125 mg PO QID #40 cap Patient Education Materials: C Diff (Clostridium Difficile) Infection (ED) Referrals: Rosas BROWER,Angelo Arroyo [Medical Doctor] - 1 Day Additional Instructions: I spoke to the covering physician for Dr. Pillai, so he will know about what we did tomorrow. Start the vancomycin tonight. - Attestation Statements Document Initiated by Scribe: Yes Documenting Scribe: Brady Guan Provider For Whom Kayce is Documenting (Include Credential): Carlos A Jolly MD Scribe Attestation: IBrady, scribed for Carlos A Jolly MD on 03/17/18 at 0025. Consult Consult: At 20:30 Dr. J[address] spoke with Dr. Seo about lab results and CTs. Recommends starting pt on oral abx for c diff.
[2018-03-16 19:00] LABS: Urine Appearance Clear; Urine Blood 1+ (Negative); Urine Color Straw; Urine Ketones Negative (Negative); Urine Protein Negative (Negative); Urine Red Blood Cell Trace(0-2/hpf) (Absent); Urine Specific Gravity 1.002 (1.010-1.030); Urine Urobilinogen Negative (Negative); Urine White Blood Cell Absent (Absent)
--- NOTE | 2018-03-16 19:52 | RAD ---
INDICATION: LEFT lower quadrant tenderness. History of C. Difficile colitis. Concern for diverticulitis. COMPARISON: No relevant prior exams available on the [facility] PACS for comparison. TECHNIQUE: Multidetector CT images were obtained from the lung bases to the ischial tuberosities with 103 mL Omnipaque 300 IV contrast. No oral contrast administered. Multiplanar reformation. REPORT: VISUALIZED INFERIOR THORAX: Unremarkable visualized inferior thorax. LIVER / GALLBLADDER / PANCREAS / SPLEEN: Subcentimeter hypodense lesion adjacent to the polo hepatis is significantly decreased in size compared with the 2011 exam consistent with benign etiology. No suspicious focal liver lesions evident. No CT abnormality of the gallbladder. Negative for biliary dilatation. Unremarkable pancreas and spleen. Small splenule adjacent to the splenic hilum. ALIMENTARY TRACT: No CT abnormality of the upper GI or small bowel. Normal diameter infra cecal appendix without inflammatory change. Severe diverticulosis of the colon most marked at the proximal sigmoid segment without findings of acute diverticulitis. Negative for ascites. Negative for free air or significant hernias. MESENTERIC: Unremarkable. ADRENAL / GENITOURINARY: Normal adrenal glands. Symmetric nephrograms and pyelograms. Negative for hydronephrosis. Subcentimeter hypodense lesion at the medial lower pole of the LEFT kidney without change consistent with benign etiology. No suspicious focal renal lesions. Unremarkable nondilated ureters and largely decompressed urinary bladder. Unremarkable anteverted atrophic uterus. Unremarkable adnexal regions. RETROPERITONEAL: Negative for lymphadenopathy. VASCULAR: Normal diameter abdominal aorta and iliac arteries with mild atherosclerotic plaque. Physiologic distention of the IVC. BONES: Negative for suspicious osseous lesions. SOFT TISSUE: Unremarkable. IMPRESSION: #. No evidence for appendicitis. #. Colonic diverticulosis without evidence for acute diverticulitis.
[2018-03-16] MEDS ORDERED: oxyCODONE TAB* 5 MG TAB PO ONE (20:20)
[2018-03-16 20:34] VITALS: BP 154/99
[2018-03-16] MEDS ORDERED: Vancomycin CAP* 125 MG CAP PO ONE (20:58)
== END 2018-03-16 21:24 | disposition home or self-care (01) ==
LOC: ED 13:13
DX: R10.84 Generalized abdominal pain (principal); R19.7 Diarrhea, unspecified; K57.30 Diverticulosis of large intestine without perforation or abscess without bleeding; I10 Essential (primary) hypertension; Z88.3 Allergy status to other anti-infective agents; Z91.040 Latex allergy status; Z91.048 Other nonmedicinal substance allergy status
CPT/HCPCS: 36415; 74177; 80053; 81003; 81015; 83605; 83690; 84484; 85025; 85610; 85730; 87493; 96360; 99284; A9270-GY; Q9967

== ENCOUNTER 2018-05-10 08:22 | Emergency (ER) | payer OTHER ==
[2018-05-10] MEDS ORDERED: Ketorolac INJ* 60 MG/2 ML VIAL IM ONE (08:40)
[2018-05-10] MEDS ORDERED: oxyCODONE/Acetamin 5/325 MG* TAB PO ONE (08:40)
--- NOTE | 2018-05-10 08:40 | ED ---
Lower Extremity - HPI Summary HPI Summary: This patient is a 57 year old F presenting to [facility] s/p fall that occurred three days ago. The patient states she slipped in her drive way and landed on her tailbone. She spent the majority of the day resting yesterday but states today she is concerned she may have injured her tailbone, as it still hurts. The patient rates the pain 8/10 in severity and is aggravated when she is sitting. She has cracked her tailbone in the past. She is also complaining of neck pain near the left trapezius. She does have a rx for hydrocodone for chronic pain but states she has not taken any today. She did take Aleve yesterday with relief. - History of Current Complaint Chief Complaint: EDBackInjuryPain Stated Complaint: FELL AND HIT TAILBONE, PAIN IN NECK Time Seen by Provider: 05/10/18 08:33 Hx Obtained From: Patient Mechanism Of Injury: Fall From A Standing Position Onset of Pain: Immediate Onset/Duration: Still Present Severity Initially: Moderate Severity Currently: Moderate Pain Intensity: 8 Pain Scale Used: 0-10 Numeric Timing: Constant Location: Is Discrete @ - tailbone Associated Signs And Symptoms: Positive: Negative - fever, Other - neck pain Aggravating Factor(s): Other - sitting on it Alleviating Factor(s): Rest Able to Bear Weight: Yes - Allergies/Home Medications Allergies/Adverse Reactions: Allergies Allergy/AdvReac Type Severity Reaction Status Date / Time adhesive tape Allergy Rash Verified 05/10/18 08:28 bacitracin Allergy Rash Verified 05/10/18 08:28 [From Neosporin ([id number])] latex Allergy Rash Verified 05/10/18 08:28 neomycin Allergy Rash Verified 05/10/18 08:28 [From Neosporin ([id number])] polymyxin B Allergy Rash Verified 05/10/18 08:28 [From Neosporin ([id number])] PMH/Surg Hx/FS Hx/Imm Hx Endocrine/Hematology History: Denies: Hx Diabetes Cardiovascular History: Reports: Hx Hypertension - ON MEDS Denies: Hx Congenital Heart Disease, Hx Pacemaker/ICD Respiratory History: Reports: Hx Asthma History: Denies: Hx Renal Disease Musculoskeletal History: Reports: Hx Arthritis, Other Musculoskeletal History - costochondritis Sensory History: Reports: Hx Contacts or Glasses Denies: Hx Legally Blind, Hx Deafness, Hx Hearing Aid Opthamlomology History: Reports: Hx Contacts or Glasses Denies: Hx Legally Blind Neurological History: Reports: Hx CVA - pt reported, Hx Migraine Psychiatric History: Reports: Hx Anxiety, Hx Depression Denies: Hx Panic Disorder - Cancer History Cancer Type, Location and Year: SKIN CARCINOMA FACE/ARMS/LEG. PRECANCEROUS CERVICAL Hx Chemotherapy: No Hx Radiation Therapy: No - Surgical History Surgery Procedure, Year, and Place: TMJ repair [place]. RIGHT achillies tendon repair [facility] arthroscopy 02/27 [facility]. fecal translplant Infectious Disease History: No Infectious Disease History: Reports: Hx Clostridium Difficile Denies: Traveled Outside the [place] in Last 30 Days - Family History Known Family History: Positive: Other - Blood cancer (sister) Negative: Cardiac Disease, Hypertension, Diabetes - Social History Alcohol Use: Occasionally Substance Use Type: Reports: None Hx Tobacco Use: No Smoking Status (MU): Never Smoked Tobacco Have You Smoked in the Last Year: No Review of Systems Negative: Fever Negative: Vomiting Positive: Other - fall with tailbone pain and neck pain Negative: Slurred Speech All Other Systems Reviewed And Are Negative: Yes Physical Exam - Summary Physical Exam Summary: Appearance: Well appearing, no pain distress Skin: warm, dry, reflects adequate perfusion Head/face: normal Eyes: EOMI, STONE ENT: mucous membranes moist Neck: supple, non-tender Respiratory: CTA, breath sounds present Cardiovascular: RRR, pulses symmetrical Abdomen: non-tender, soft Bowel Sounds: present Musculoskeletal: normal, strength/ROM intact Midline coccyx is TTP. Neuro: normal, sensory motor intact, A&Ox3 Triage Information Reviewed: Yes Vital Signs On Initial Exam: Initial Vitals Temp Pulse Resp BP Pulse Ox 97.4 F 133 16 170/99 100 05/10/18 08:26 05/10/18 08:26 05/10/18 08:26 05/10/18 08:26 05/10/18 08:26 Vital Signs Reviewed: Yes Diagnostics - Vital Signs Vital Signs Temp Pulse Resp BP Pulse Ox 05/10/18 08:26 97.4 F 133 16 170/99 100 - Laboratory Lab Statement: Any lab studies that have been ordered have been reviewed, and results considered in the medical decision making process. - Radiology coccyx xray Radiology Interpretation Completed By: Radiologist Summary of Radiographic Findings: No definite fracture of the sacrum or coccyx is noted. ED physician has reviewed this radiology report. Lower Extremity Course/Dx - Course Course Of Treatment: Patient with fall injuring the tailbone several days ago. She has history chronic pain is on opiate medications. She states that she did not take any of these. She ambulates well and is neurologically intact. X-ray negative for fracture. Treat symptomatically. Offloaded with doughnut pillow. Assessment/Plan: Nurse's note reviewed. - Diagnoses Differential Diagnosis/HQI/PQRI: Positive: Other - Fracture versus contusion Provider Diagnoses: Coccyx contusion, Elevated blood pressure reading Discharge - Sign-Out/Discharge Documenting (check all that apply): Patient Departure - Discharge Plan Condition: Improved Disposition: HOME Patient Education Materials: Coccyx Injury (ED) Referrals: Reanna Truong NP [Primary Care Provider] - Additional Instructions: Purchase doughnut pillow from pharmacy or more [employer]. Ice to the area. Anti- inflammatories and as needed hydrocodone for discomfort. Follow-up with your family doctor as needed. Return if worse or other concerns. - Billing Disposition and Condition Condition: IMPROVED Disposition: Home - Attestation Statements Document Initiated by Kayce: Yes Documenting Scribe: Rik Dozier Provider For Whom Kayce is Documenting (Include Credential): Sukumar Pugh MD Scribe Attestation: Rik Martinez scribed for Sukumar Pugh MD on 05/10/18 at 1156. Scribe Documentation Reviewed: Yes Provider Attestation: The documentation as recorded by the Rik hewitt accurately reflects the service I personally performed and the decisions made by , Sukumar Pugh MD Status of Scribe Document: Viewed
[2018-05-10 09:18] VITALS: BP 178/97
== END 2018-05-10 09:16 | disposition home or self-care (01) ==
LOC: ED 08:22
DX: S30.0XXA Contusion of lower back and pelvis, initial encounter (principal); R03.0 Elevated blood-pressure reading, without diagnosis of hypertension; Y92.093 Driveway of other non-institutional residence as the place of occurrence of the external cause; I10 Essential (primary) hypertension; J45.909 Unspecified asthma, uncomplicated; Z85.828 Personal history of other malignant neoplasm of skin; Z86.73 Personal history of transient ischemic attack (TIA), and cerebral infarction without residual deficits
CPT/HCPCS: 72220; 96372; 99282; A9270-GY; J1885

== ENCOUNTER → 2018-05-21 07:54 | Emergency (ER) | payer SELFPAY ==
[~2018-05-21 07:54] MED LIST: ALPRAZolam TAB* 0.25 MG PO ONE; Escitalopram (NF) 10 MG TAB PO ONE; Escitalopram (NF) 20 MG TAB PO ONE; NS 0.9% 1000 ML* 2,000 ML IV ONE; Omeprazole CAP (NF) 20 MG CAP.DR PO ONE; Ondansetron ODT TAB* 4 MG SL ONE; Potassium Chloride LIQUID* 20 MEQ PACKET PO ONE
--- OUTSIDE RECORDS SUMMARY | 2018-05-21 08:28 | XMS REPORT | Continuity of Care Document ---
:1960 External Reference #:[id number] Author Name Brian Pitt, DO Address [address] [place] [address] [place] [address] Care Team Providers Name Role Phone Angelo Benitez MD Care Team Information Provisioning Specialist Unavailable Payers Type Date Identification Numbers Payment Provider Subscriber Policy Number: [id number] [facility] Xavier Post PayID: [id number] [place] [address] Advance Directives Description No Information Available Problems Date Description Provider Status Onset: 04/07/2017 Asthma without status asthmaticus GEORGE Gonsalez Active Onset: 10/18/2016 Cerebellar stroke syndrome Johnson Solorio MD Active Onset: 10/09/2016 Migraine Johnson Solorio MD Active Onset: 10/09/2016 Seasonal allergic rhinitis Johnson Solorio MD Active Onset: 06/07/2015 Chronic pain Reanna Truong NP Active Onset: 06/02/2010 Benign essential hypertension Jordyn Lion MD Active Onset: 06/24/2017 Clostridium difficile colitis Jordyn Lion MD Active Onset: 10/02/2017 Incontinence of feces Nereyda Brown PA-C Active Onset: 10/02/2017 Diarrhea Nereyda Brown PA-C Active Family History Description No Information Available Social History Type Date Description Comments Sex Unknown ETOH Use Denies alcohol use Tobacco Use Start: Unknown Patient has never smoked Smoking Status Reviewed: 04/28/18 Patient has never smoked Allergies, Adverse Reactions, Alerts Date Description Reaction Status Severity Comments 09/03/2009 Neosporin rash Active Moderate 04/07/2017 Bandaids Active Medications Medication Date Status Form Strength Qnty SIG Indications Ordering Provider Zofran 03/11/ Active Tablets 8mg 30tab [email or web address] s JOSE gonzalez Alprazolam 11/17/ Active Tablets 0.25mg 20tab F41.9 Alexi2017 s JOSE gonzalez Fibercon 08/25/ Active Tablets 625mg 120ta Alexi2017 bs JOSE gonzalez Potassium 07/04/ Active Tablets ER 10Meq 30tab AlexiAdeline Chloride ER 2017 s JOSE gonzalez Florastor 07/03/ Active Capsules 250mg 60cap Alexi2017 s JOSE gonzalez Fluconazole 04/24/ Active Tablets 150mg 14tab Alexi2016 s JOSE gonzalez Omeprazole 04/01/ Active Capsules DR 20mg 30cap R19.7 Alexi2016 s JOSE gonzalez Advair Diskus 03/07/ Active Aerosol 500-50mcg 60uni inhale Adeline Truong 2016 /Dose ts one dose JOSE gonzalez by mouth twice daily Escitalopram 02/20/ Active Tablets 20mg 30tab 1 by F32.9 Adeline Truong Oxalate 2016 s mouth JOSE gonzalez every day Cetirizine HCL 02/14/ Active Tablets 10mg 30tab 1 by J30.9 Adeline Truong 2016 s mouth JOSE gonzalez every day Aspirin 10/18/ Active Tablets DR 81mg 90tab 1 by Manohar Solorio 2016 s mouth -MD Brady every day Ibuprofen 05/08/ Active Tablets 800mg 90tab by mouth Adeline Truong 2015 s three JOSE gonzalez times a day as needed Hydrocodone-Acet 11/28/ Active Tablets 5-325mg 120ta one Adeline Truong aminophen 2015 bs tablets JOSE gonzalez by mouth every 6 hours as needed for pain Fluticasone 07/17/ Active Suspension 50mcg/Act 16uni 2 sprays Adeline Truong Propionate 2016 ts each JOSE gonzalez nostril daily as needed Zofran Odt 10/12/ Active Tablets 4mg 6tabs 1 odt by 346.00 Ya Coates 2014 Dispers mouth up callyUROLOGIST to twice daily atleast 6 hours apart. as needed. This is short term use Inderal LA 10/12/ Active Caps ER 24HR 60mg 30cap Take One Ya Coates 2014 s Capsule callyUROLOGIST By Mouth Every Day Losartan 10/27/ Active Tablets 50-12.5mg 30tab Take One Adeline Truong Potassium/Hydroc 2012 s Tablet By JOSE gonzalez hlorothiazide Mouth Every Day Omeprazole / Active Capsules DR 20mg 1 by Unknown 0000 mouth every day Vancomycin HCL / Active Capsules 125mg 1 cap by Unknown 0000 mouth three times a day Cyanocobalamin / Active Solution 1000mcg/M 150un Adeline Truong 0000 L its JOSE gonzalez Benzonatate / Active Capsules 200mg 30cap ReiHeber kimble 0000 s h,[employer]IST Vancomycin HCL 03/16/ Hx Capsules 125mg Unknown 2018 - 2017 Metronidazole 06/20/ Hx Tablets 500mg 42tab one Simone Lion 2017 - s tablet by opal 10/02/ mouth 3 2017 times daily x 2 weeks Fluconazole 04/24/ Hx Tablets 150mg 2tabs Take One Simone Lion 2016 - Tablet By opal 10/02/ Mouth In 2017 A Single Dose And May Repeat In 3 Days If Needed Colyte-Flavor 04/07/ Hx Solution Rec 240gm 4000m As K21.9 Corazon Packs 2016 - l directed Deep 04/10/ [employer] SPECIALIST-C 2017 Metronidazole 03/08/ Hx Tablets 500mg 42tab one Simone Lion 2016 - s tablet by opal 04/07/ mouth 3 2016 times daily x 2 weeks Advair Diskus 03/07/ Hx Aerosol 500-50mcg 60uni Adeline Truong 2017 - /Dose ts JOSE gonzalez 2017 Escitalopram 02/20/ Hx Tablets 20mg 30tab F32.9 Adeline Truong Oxalate 2016 - s JOSE gonzalez 2017 Cetirizine HCL 02/14/ Hx Tablets 10mg 30tab J30.9 Adeline Truong 2016 - s JOSE gonzalez 2017 Aspirin 10/18/ Hx Tablets DR 81mg 90tab Manohar Solorio 2017 - s -MD Brady 2017 Colyte With 07/08/ Hx Solution Rec 240gm 4000m by mouth Inderjit Dalton Packs 2016 - l as Vega BROWER 04/07/ directed 2016 Ibuprofen 05/08/ Hx Tablets 800mg 90tab Adeline Truong 2015 - s JOSE gonzalez 2017 Voltaren 04/30/ Hx Gel 1% 500un apply to Adeline Truong 2016 - its affected JOSE gonzalez area four 2018 times daily Hydrocodone-Acet 11/28/ Hx Tablets 5-325mg 28tab M54.2 Adeline Truong aminophen 2015 - s JOSE gonzalez 2017 Fluticasone 07/17/ Hx Suspension 50mcg/Act 16uni Adeline Truong Propionate 2015 - ts JOSE gonzalez 2017 Pulmicort 06/08/ Hx Aerosol 180mcg/Ac 1unit 2 puffs Adeline Truong Flexhaler 2015 - t s twice JOSE gonzalez 04/07/ daily 2016 Escitalopram 05/02/ Hx Tablets 10mg 30tab Take One Adeline Truong Oxalate 2014 - Tablet By JOSE gonzalez 04/07/ Mouth 2017 Every Day Sumatriptan 10/12/ Hx Tablets 50mg 18tab Take 1 Guinean,Ro Succinate 2014 - Tablet By JOSE alamo 04/07/ Mouth as 2017 Directed; May Repeat In 2 Hours If Still Have Headache Losartan 10/27/ Hx Tablets 50-12.5mg 30tab Adeline Truong Potassium/Hydroc 2012 - s JOSE gonzalez hlorothiazide 2017 Tretinoin / Hx Cream 0.05% apply on Unknown 0000 - affected area 2017 daily as needed ALL Day Allergy / Hx Capsules 10mg 1 by Unknown 0000 - mouth 04/27/ every day 2018 Magnesium Oxide / Hx Tablets 400(241.3 Unknown 0000 - Mg) mg 2017 Vitamin B-12 ER / Hx Tablets ER 1000mcg Unknown 0000 - 2017 Immunizations CPT Code Status Date Vaccine Lot # [id number] Given 02/24/2018 Influenza Virus Vaccine, Quadrivalent, Split, Preservative Free [id number] Given 02/20/2017 Td Preservative Free For Use In Individuals 7 Yrs Or Older 43036 Given 02/20/2017 Influenza Virus Vaccine, Quadrivalent, Split, Preservative Free Q2039 Given 04/10/2016 Influenza Vaccine Not Specified Administered Age 3 And Older 47977 Given 04/12/2015 Influenza Virus Vaccine, Quadrivalent, Split, Preservative Free Q2035 Given 03/25/2014 Influenza Virus Vaccine Split Virus 3 Years Of Age And Older 92743 Given 03/16/2013 Influenza Virus Vaccine Split Virus Use For Individual 3Yr Older 61230 Given 02/26/2011 Influenza [place], [place] [address] Given 02/22/2010 Influenza [place], [place] [address] Given 03/06/2009 Influenza Virus Vaccine, Split Virus, Im Vital Signs Date Vital Result Comment 04/28/2018 3:00pm Height 67 inches 5'7" Weight 165.00 lb BP Systolic 170 mmHg BP Diastolic 100 mmHg Heart Rate 100 /min BMI (Body Mass Index) 25.8 kg/m2 10/02/2017 11:10am Height 67 inches 5'7" Weight 172.00 lb BP Systolic 140 mmHg BP Diastolic 100 mmHg Heart Rate 82 /min BMI (Body Mass Index) 26.9 kg/m2 04/07/2017 1:33pm Height 67 inches 5'7" Weight 168.00 lb BP Systolic 130 mmHg BP Diastolic 74 mmHg Heart Rate 76 /min BMI (Body Mass Index) 26.3 kg/m2 07/08/2016 2:49pm Height 67 inches 5'7" Weight 155.00 lb BMI (Body Mass Index) 24.3 kg/m2 Results Test Date Facility Test Result H/L Range Note Laboratory test 03/16/2018 N2N/CCD Import C Difficile PCR See Result 1 finding Below Laboratory test 03/16/2018 [facility] C Difficile PCR <pending> finding Unspec Spec Laboratory test 03/16/2018 N2N/CCD Import Albumin 3.8 g/dL 3.2-5.2 finding Albumin/Globulin Ratio 1.2 1 1-3 Alkaline Phosphatase 93 U/L 34-104 Alt 33 U/L 7-52 Anion Gap 8 mmol/L 2-11 Ast 39 U/L 13-39 BUN/Creatinine Ratio 10.4 1 8-20 Blood Urea Nitrogen 8 mg/dL 6-24 Calcium 9.2 mg/dL 8.6-10.3 Chloride 100 mmol/L Low 101-111 Co2 Carbon Dioxide 29 mmol/L 22-32 Creatinine 0.77 mg/dL 0.51-0.95 Egfr 94.2 1 >60 2 Egfr Non- 77.8 1 >60 Globulin 3.3 g/dL 2-4 Glucose 103 mg/dL High 70-100 Lactic Acid 0.8 mmol/L 0.5-2.0 3 Lipase 36 U/L 11.0-82.0 Partial Thrombo Time PTT 31.2 s 26.0-36.3 Potassium 3.6 mmol/L 3.5-5.0 Sodium 137 mmol/L 135-145 Total Bilirubin 0.90 mg/dL 0.2-1.0 Total Protein 7.1 g/dL 6.4-8.9 Troponin-I (TnI) 0.00 ng/mL <0.04 CBC Auto Diff 03/16/2018 [employer] Import Abs Basophils 0 10^3/uL 0-0.2 Abs Eosinophils 0.2 10^3/uL 0-0.6 Abs Lymphocytes 2.1 10^3/uL 1.0-4.8 Abs Monocytes 0.6 10^3/uL 0-0.8 Abs Neutrophils 5.6 10^3/uL 1.5-7.7 Abs Nucleated RBC 0 10^3/uL Basophil % 0.5 % 0-2 Eosinophil % 2.7 % 0-6 Granulocyte % 65.5 % 38-83 Hematocrit 43 % 35-47 Hemoglobin 14.8 g/dL 12.0-16.0 Lymphocyte % 24.0 % Low 25-47 Mean Corpuscular HGB Conc 34 g/dL 31-36 Mean Corpuscular Hemoglobin 34 pg High 27-31 Mean Corpuscular Volume 100 fL High 80-97 Mean Platelet Volume 8.7 um3 7.4-10.4 Monocyte % 7.3 % High 0-7 Nucleated Red Blood Cells % 0.3 1 Platelet Count 217 10^3/uL 150-450 Red Blood Count 4.33 10^6/uL 4.00-5.40 Red Cell Distribution Width 16 % High 10.5-15 White Blood Count 8.6 10^3/uL 3.5-10.8 Inr/Protime 03/16/2018 [employer] Import Inr 0.88 1 0.77-1.02 Urinalysis Profile 03/16/2018 [employer] Import Urine Appearance Clear Urine Bacteria Absent Absent Urine Bilirubin Negative Negative Urine Blood 1+ Negative Urine Color Straw Urine Glucose Negative Negative Urine Ketones Negative Negative Urine Leukocytes Negative Negative Urine Nitrite Negative Negative Urine Protein Negative Negative Urine Red Blood Cell Trace(0-2/hpf) Absent Urine Specific [place] 1.002 1 Low 1.010-1.030 Urine Squamous Epithelial Cell Present Absent Urine Urobilinogen Negative Negative Urine White Blood Cell Absent Absent Urine pH 6.0 1 5-9 Laboratory test finding 02/24/2018 N2N/CCD Import Albumin 3.5 g/dL 3.2- 5.2 Albumin/Globulin Ratio 1.3 1 1-3 Alkaline Phosphatase 91 U/L 34-104 Alt 32 U/L 7-52 Anion Gap 6 mmol/L 2-11 Ast 44 U/L High 13-39 BUN/Creatinine Ratio 11.5 1 8-20 Blood Urea Nitrogen 9 mg/dL 6-24 Calcium 9.1 mg/dL 8.6-10.3 Chloride 102 mmol/L 101-111 Co2 Carbon Dioxide 32 mmol/L 22-32 Creatinine 0.78 mg/dL 0.51-0.95 Egfr 92.8 1 >60 4 Egfr Non- 76.7 1 >60 Globulin 2.7 g/dL 2-4 Glucose 98 mg/dL 70-100 Magnesium 1.8 mg/dL Low 1.9-2.7 Potassium 4.2 mmol/L 3.5-5.0 Sodium 140 mmol/L 135-145 Total Bilirubin 0.40 mg/dL 0.2-1.0 Total Protein 6.2 g/dL Low 6.4-8.9 Vitamin B12 > 1450 pg/mL High 180-914 5 CBC Auto Diff 02/24/2018 N2N/CCD Import Abs Basophils 0.1 10^3/uL 0-0.2 Abs Eosinophils 0.3 10^3/uL 0-0.6 Abs Lymphocytes 2.8 10^3/uL 1.0-4.8 Abs Monocytes 0.8 10^3/uL 0-0.8 Abs Neutrophils 4.1 10^3/uL 1.5-7.7 Abs Nucleated RBC 0 10^3/uL Basophil % 0.8 % 0-2 Eosinophil % 3.6 % 0-6 Granulocyte % 50.6 % 38-83 Hematocrit 43 % 35-47 Hemoglobin 14.6 g/dL 12.0-16.0 Lymphocyte % 35.5 % 25-47 Mean Corpuscular HGB Conc 34 g/dL 31-36 Mean Corpuscular Hemoglobin 34 pg High 27-31 Mean Corpuscular Volume 101 fL High 80-97 Mean Platelet Volume 8.7 um3 7.4-10.4 Monocyte % 9.5 % High 0-7 Nucleated Red Blood Cells % 0.2 1 Platelet Count 231 10^3/uL 150-450 Red Blood Count 4.31 10^6/uL 4.00-5.40 Red Cell Distribution Width 16 % High 10.5-15 White Blood Count 8.0 10^3/uL 3.5-10.8 Lipid Profile (Trig/Chol/HDL) 02/24/2018 N2N/CCD Import Cholesterol 149 mg/ dL 6 HDL Cholesterol 81.7 mg/dL 7 LDL Cholesterol 53 mg/dL 8 Triglycerides 74 mg/dL 9 Culture Stool & O&P 02/04/2018 [facility] Culture Stool <pending> O&P Ova & Parasite Exam <pending> Laboratory test 02/04/2018 [facility] O&P Giardia & <pending> finding Cryptosporidium Stool 02/04/2018 [facility] Z#Other Observations <pending> Shiga-Toxin 1 And 2 Laboratory test 02/04/2018 [facility] Culture Stool Ecoli <pending> finding O157:H7 QL CBC Auto Diff 07/03/2017 [facility] White Blood Count 8.3 10^3/uL N 3.5-1 10 0.8 Red Blood Count 3.58 10^6/uL Low 4.0-5.4 Hemoglobin 12.6 g/dL N 12.0-16.0 Hematocrit 38 % N 35-47 Mean Corpuscular Volume 105 fL High 80-97 Mean Corpuscular Hemoglobin 35 pg High 27-31 Mean Corpuscular HGB Conc 33 g/dL N 31-36 Red Cell Distribution Width 16 % High 10.5-15 Platelet Count 224 10^3/uL N 150-450 Mean Platelet Volume 9 um3 N 7.4-10.4 Abs Neutrophils 4.0 10^3/uL N 1.5-7.7 Abs Lymphocytes 3.2 10^3/uL N 1.0-4.8 Abs Monocytes 0.8 10^3/uL N 0-0.8 Abs Eosinophils 0.3 10^3/uL N 0-0.6 Abs Basophils 0.1 10^3/uL N 0-0.2 Abs Nucleated RBC 0 10^3/uL Granulocyte % 47.7 % N 38-83 Lymphocyte % 38.5 % N 25-47 Monocyte % 9.9 % High 1-9 Eosinophil % 3.2 % N 0-6 Basophil % 0.7 % N 0-2 Nucleated Red Blood Cells % 0 Comp Metabolic Panel 07/03/2017 [facility] [place] Sodium 139 mmol/L N 133-145 Potassium 3.3 mmol/L Low 3.5-5.0 Chloride 103 mmol/L N 101-111 Co2 Carbon Dioxide 31 mmol/L N 22-32 Anion Gap 5 mmol/L N 2-11 Glucose 114 mg/dL High 70-100 Blood Urea Nitrogen 8 mg/dL N 6-24 Creatinine 0.72 mg/dL N 0.51-0.95 BUN/Creatinine Ratio 11.1 N 8-20 Calcium 9.1 mg/dL N 8.6-10.3 Total Protein 6.1 g/dL Low 6.4-8.9 Albumin 3.3 g/dL N 3.2-5.2 Globulin 2.8 g/dL N 2-4 Albumin/Globulin Ratio 1.2 N 1-3 Total Bilirubin 0.20 mg/dL N 0.2-1.0 Alkaline Phosphatase 71 U/L N 34-104 Alt 22 U/L N 7-52 Ast 31 U/L N 13-39 Egfr Non- 84.4 >60 Egfr 108.6 >60 11 Iron & Iron Binding Capacity 07/03/2017 [facility] [place] Iron 48 g/dL Low 50-212 Unsaturated Iron Binding 260 g/dL Total Iron Binding Capacity 308 g/dL N 250-450 % Iron Saturation 16 % N 15-55 Laboratory test 06/20/2017 N2N/CCD Import C Difficile PCR See Result 12 finding Below Laboratory test 06/09/2017 [facility] [place] Clotest SEE RESULT 13 finding BELOW Laboratory test 06/09/2017 [facility] [place] Surgical SEE RESULT 14, 15 finding Pathology BELOW Cardiolipin 05/08/2017 N2N/CCD Import Phospholipid Ab 18.7 MPL High 16 Igg/Igm IgM, S CBC Auto Diff 05/08/2017 N2N/CCD Import Abs Basophils 0.1 10^3/uL 0-0.2 Abs Eosinophils 0.1 10^3/uL 0-0.6 Abs Lymphocytes 3.2 10^3/uL 1.0-4.8 Abs Monocytes 0.5 10^3/uL 0-0.8 Abs Neutrophils 6.6 10^3/uL 1.5-7.7 Abs Nucleated RBC 0.03 10^3/uL Basophil % 1.2 % 0-2 Eosinophil % 1.1 % 0-6 Granulocyte % 62.9 % 38-83 Hematocrit 32 % Low 35-47 Hemoglobin 10.8 g/dL Low 12.0-16.0 Lymphocyte % 30.0 % 25-47 Mean Corpuscular HGB Conc 34 g/dL 31-36 Mean Corpuscular Hemoglobin 34 pg High 27-31 Mean Corpuscular Volume 100 fL High 80-97 Mean Platelet Volume 10 um3 7.4-10.4 Monocyte % 4.8 % 1-9 Nucleated Red Blood Cells % 0.3 1 Platelet Count 179 10^3/uL 150-450 Red Blood Count 3.17 10^6/uL Low 4.0-5.4 Red Cell Distribution Width 18 % High 10.5-15 White Blood Count 10.5 10^3/uL 3.5-10.8 Laboratory test finding 05/08/2017 N2N/CCD Import Albumin 2.8 g/dL Low 3.2-5.2 Albumin/Globulin Ratio 0.9 1 Low 1-3 Alkaline Phosphatase 358 U/L High 34-104 Alt 113 U/L High 7-52 Anion Gap 5 mmol/L 2-11 Ast 135 U/L High 13-39 BUN/Creatinine Ratio 17.1 1 8-20 Beta 2 Glycoprotein IgM 21.1 U/mL 17 Blood Urea Nitrogen 12 mg/dL 6-24 Calcium 8.6 mg/dL 8.6-10.3 Chloride 99 mmol/L Low 101-111 Co2 Carbon Dioxide 33 mmol/L High 22-32 Creatinine 0.70 mg/dL 0.51-0.95 Direct Bilirubin 0.90 mg/dL High 0.03-0.18 Egfr 112.1 1 >60 Egfr Non- 87.2 1 >60 Globulin 3.0 g/dL 2-4 Glucose 85 mg/dL 70-100 Indirect Bilirubin 1.1 mg/dL High 0.3-1.0 Potassium 3.3 mmol/L Low 3.5-5.0 Sodium 137 mmol/L 133-145 18 Total Bilirubin 2.00 mg/dL High 0.2-1.0 Total Protein 5.8 g/dL Low 6.4-8.9 Laboratory test finding 04/06/2017 N2N/CCD Import Albumin 3.1 g/dL Low 3.2-5.2 Albumin/Globulin Ratio 1.1 1 1-3 Alkaline Phosphatase 84 U/L 34-104 Alt 446 U/L High 7-52 Anion Gap 9 mmol/L 2-11 Ast 591 U/L High 13-39 BUN/Creatinine Ratio 18.5 1 8-20 Blood Urea Nitrogen 15 mg/dL 6-24 C Reactive Protein 3.81 mg/L < 5.00 Calcium 7.9 mg/dL Low 8.6-10.3 Chloride 101 mmol/L 101-111 Co2 Carbon Dioxide 27 mmol/L 22-32 Creatinine 0.81 mg/dL 0.51-0.95 Egfr 94.8 1 >60 Egfr Non- 73.7 1 >60 Globulin 2.7 g/dL 2-4 Glucose 114 mg/dL High 70-100 Lipase 20 U/L 11.0-82.0 19 Potassium 3.6 mmol/L 3.5-5.0 Sodium 137 mmol/L 133-145 20 Total Bilirubin 2.70 mg/dL High 0.2-1.0 Total Protein 5.8 g/dL Low 6.4-8.9 CBC Auto Diff 04/06/2017 N2N/CCD Import Abs Basophils 0.1 10^3/uL 0-0.2 Abs Eosinophils 0 10^3/uL 0-0.6 Abs Lymphocytes 1.3 10^3/uL 1.0-4.8 Abs Monocytes 0.7 10^3/uL 0-0.8 Abs Neutrophils 6.5 10^3/uL 1.5-7.7 Abs Nucleated RBC 0 10^3/uL Basophil % 1.0 % 0-2 Eosinophil % 0.1 % 0-6 Granulocyte % 76.3 % 38-83 Hematocrit 42 % 35-47 Hemoglobin 14.5 g/dL 12.0-16.0 Lymphocyte % 14.9 % Low 25-47 Mean Corpuscular HGB Conc 34 g/dL 31-36 Mean Corpuscular Hemoglobin 33 pg High 27-31 Mean Corpuscular Volume 96 fL 80-97 Mean Platelet Volume 9 um3 7.4-10.4 Monocyte % 7.7 % 1-9 Nucleated Red Blood Cells % 0 1 Platelet Count 243 10^3/uL 150-450 Red Blood Count 4.38 10^6/uL 4.0-5.4 Red Cell Distribution Width 14 % 10.5-15 White Blood Count 8.5 10^3/uL 3.5-10.8 Xray 04/06/2017 [facility] [place] Radiology US, Gallbladder <pending> ([id number]) Stool C Diff Toxin 03/27/2017 [facility] C Diff Toxin Dna <pending> By PCR Probe QL STL Laboratory test 03/13/2017 N2N/CCD Import Phospholipid Igm AB 16.6 MPL 21 finding Lipid Panel(!) 03/12/2017 [facility] Cholesterol Total <pending> Mass/Vol(!) HDL Cholesterol Mol/Vol <pending> 30-85 Triglycerides Ser/Plas(!) <pending> LDL Cholesterol Mass/Vol(!) <pending> CMP(!) 03/12/2017 [facility] Sodium(!) <pending> Potassium(!) <pending> Chloride Serum/Plasma(!) <pending> Carbon Dioxide Ser/Plasm(!) <pending> BUN - Urea Nitrogen(!) <pending> Calcium Ser/Plasma Mass/Vol(!) <pending> Creatinine Serum Mass/Vol(!) <pending> Glucose Serum(!) <pending> Uric Acid Ser/Plas Mass/Vol(!) <pending> BUN/Creatinine Ratio(!) <pending> Albumin Serum/Plasma(!) <pending> Alkaline Phosphatase(!) <pending> Bilirubin Total Mass/Vol(!) <pending> Ast - Sgot <pending> Alt - SGPT <pending> Protein Total <pending> Stool C Diff Toxin 03/08/2017 [facility] C Diff Toxin Dna <pending> By PCR Probe STL Culture Stool 03/08/2017 [facility] Culture Stool <pending> CBC W/Auto 10/18/2016 [facility] White Blood Count <pending> Differential(!) Ser Auto CNT RBC Red Blood Count <pending> Hemoglobin Blood <pending> Hematocrit <pending> MCV (Corpuscular Volume) <pending> MCH (Corpuscular Hemoglobin) <pending> MCHC (Corpuscular Hemog Conc) <pending> RDW <pending> Platelet Count Blood Auto CNT <pending> MPV <pending> Lymph% <pending> [place]% <pending> Neutrophil % <pending> Absolute Lymphocytes <pending> Absolute Monocytes <pending> Absolute Neutrophils <pending> Laboratory test 10/18/2016 [facility] Erythropoietin <pending> finding Laboratory test 06/02/2015 N2N/CCD Import Albumin 3.8 g/dL 3.2-5.2 finding Albumin/Globulin Ratio 1.5 1-3 Alkaline Phosphatase 79 U/L 34-104 Alt 14 U/L 7-52 Anion Gap 5 mmol/L 2-11 Ast 17 U/L 13-39 BUN/Creatinine Ratio 13.7 8-20 Blood Urea Nitrogen 10 mg/dL 6-24 Calcium 8.9 mg/dL 8.6-10.3 Chloride 105 mmol/L 101-111 Co2 Carbon Dioxide 28 mmol/L 22-32 Creatinine 0.73 mg/dL 0.51-0.95 Egfr 107.7 >60 Egfr Non- 83.7 >60 Globulin 2.6 g/dL 2-4 Glucose 102 mg/dL High 70-100 Potassium 4.5 mmol/L 3.5-5.0 Sodium 138 mmol/L 133-145 22 Total Bilirubin 0.30 mg/dL 0.2-1.0 Total Protein 6.4 g/dL 6.4-8.9 Lipid Profile (Trig/Chol/HDL) 06/02/2015 N2N/CCD Import Cholesterol 121 mg/ dL 23 HDL Cholesterol 68.4 mg/dL 24 LDL Cholesterol 40 mg/dL 25 Triglycerides 65 mg/dL 26 Laboratory test finding 06/03/2014 N2N/CCD Import Albumin 4.1 g/dL 3.2- 5.2 27 Albumin/Globulin Ratio 1.4 1-3 Alkaline Phosphatase 71 U/L 34-104 Alt 18 U/L 7-52 Anion Gap 2 mmol/L 2-11 Ast 18 U/L 13-39 BUN/Creatinine Ratio 16.5 8-20 Blood Urea Nitrogen 14 mg/dL 6-24 Calcium 9.1 mg/dL 8.6-10.3 Chloride 106 mmol/L 101-111 Co2 Carbon Dioxide 31 mmol/L 22-32 Creatinine 0.85 mg/dL 0.51-0.95 Egfr 90.7 >60 Egfr Non- 70.5 >60 Globulin 2.9 g/dL 2-4 Glucose 106 mg/dL High 70-100 Potassium 3.9 mmol/L 3.5-5.0 Sodium 139 mmol/L 133-145 Total Bilirubin 0.30 mg/dL 0.2-1.0 Total Protein 7.0 g/dL 6.4-8.9 Lipid Profile (Trig/Chol/HDL) 06/03/2014 N2N/CCD Import Cholesterol 120 mg/ dL 28 HDL Cholesterol 60.9 mg/dL LDL Cholesterol 41 mg/dL 29 Triglycerides 93 mg/dL Laboratory test finding 06/23/2013 N2N/CCD Import Albumin 3.9 g/dL 3.6- 5.4 Albumin/Globulin Ratio 1.6 1-3 Alkaline Phosphatase 86 U/L 30-110 Alt 26 U/L 14-54 Anion Gap 8.0 mmol/L 2-11 Ast 26 U/L 12-42 BUN/Creatinine Ratio 18.8 8-20 Blood Urea Nitrogen 15 mg/dL 6-24 Calcium 9.4 mg/dL 8.1-9.9 Chloride 98 mmol/L Low 101-111 Co2 Carbon Dioxide 29.0 mmol/L 22-32 Creatinine 0.80 mg/dL 0.50-1.40 Egfr 97.6 >60 Egfr Non- 75.9 >60 Globulin 2.5 g/dL 2-4 Glucose 93 mg/dL 70-100 Potassium 3.6 mmol/L 3.5-5.0 Sodium 135 mmol/L 133-145 30 Total Bilirubin 0.7 mg/dL 0.4-1.5 Total Protein 6.4 g/dL 6.2-8.1 Lipid Profile 06/23/2013 N2N/CCD Import Cholesterol 125 mg/dL Less than 31 (Trig/Chol/HDL) 200 Cholesterol/HDL Ratio 2.2 Average 1-4.44 HDL Cholesterol 56 mg/dL 40-60 LDL Cholesterol 46.6 Less Than 100 Triglycerides 112 mg/dL 40-200 32 Surgical Pathology 06/10/2011 [facility] [place] Surgical Pathology <SEE 33 NOTE> 1 SEE RESULT BELOW Name: XAVIER POST: [address]: Rolly Medina MD Acct: [id number] Unit: [id number] AGE: 57 Location: ED Re03/16/18 SEX: F Status: REG ER SPEC: [id number] PHIL: 03/16/[address]: Rolly Medina MD REQ: [id number] RECD: 03/16/18 STATUS: JENN NINO DR: Reanna Truong UROLOGIST _ SOURCE: STOOL SPDESC: ORDERED: C. diff PCR Procedure Result Reported Site Stool Specimen Description Final 03/16/18- 1854 ML Stool Color Brown Stool Form Nonformed Stool Consistency Mucoid Soft C. difficile PCR Final 03/16/18- 2000 ML Organism 1 027 Presumptive NEGATIVE Organism 2 Toxigenic C.diff POSITIVE * ML - Main Lab . END OF REPORT DEPARTMENT OF PATHOLOGY, [address] [place] [address] Tony Mondragon M.D. Director [facility] # [id number] 2 Because ethnic data is not always readily available, this report includes an eGFR for both -Americans and non- Americans. The National Kidney Disease Education Program (NKDEP) does not endorse the use of the MDRD equation for patients that are not between the ages of 18 and 70, are , have extremes of body size, muscle mass, or nutritional status, or are non- or non-. According to the National Kidney Foundation, irrespective of diagnosis, the stage of the disease is based on the level of kidney function: Stage Description GFR(mL/min/1.73 m(2)) 1 Kidney damage with normal or decreased GFR 90 2 Kidney damage with mild decrease in GFR 60-89 3 Moderate decrease in GFR 30-59 4 Severe decrease in GFR 15-29 5 Kidney failure <15 (or dialysis) 3 [facility] Severe Sepsis and Septic Shock Management Bundle Measure requires all lactic acids initially measuring >2.0 mmol/L be repeated. 4 Because ethnic data is not always readily available, this report includes an eGFR for both -Americans and non- Americans. The National Kidney Disease Education Program (NKDEP) does not endorse the use of the MDRD equation for patients that are not between the ages of 18 and 70, are , have extremes of body size, muscle mass, or nutritional status, or are non- or non-. According to the [employer] Kid[employer], irrespective of diagnosis, the stage of the disease is based on the level of kidney function: Stage Description GFR(mL/min/1.73 m(2)) 1 Kidney damage with normal or decreased GFR 90 2 Kidney damage with mild decrease in GFR 60-89 3 Moderate decrease in GFR 30-59 4 Severe decrease in GFR 15-29 5 Kidney failure <15 (or dialysis) 5 Normal Range 180 to 914 Indeterminate Range 145 to 180 Deficient Range <145 6 Desirable: <200 Borderline High: 200-239 High: >239 7 Low: <40 Desirable: 40-60 High: >60 8 Desirable: <100 Near Optimal: 100-129 Borderline High: 130-159 High: 160-189 Very High: >189 9 Desirable: <150 Borderline High: 150-199 High: 200-499 Very High: >500 10 Copy Result to: FRANCISCO CHRISTINE ([id number]) 11 Because ethnic data is not always readily available, this report includes an eGFR for both -Americans and non- Americans. The National Kidney Disease Education Program (NKDEP) does not endorse the use of the MDRD equation for patients that are not between the ages of 18 and 70, are , have extremes of body size, muscle mass, or nutritional status, or are non- or non-. According to the National Kidney Foundation, irrespective of diagnosis, the stage of the disease is based on the level of kidney function: Stage Description GFR(mL/min/1.73 m(2)) 1 Kidney damage with normal or decreased GFR 90 2 Kidney damage with mild decrease in GFR 60-89 3 Moderate decrease in GFR 30-59 4 Severe decrease in GFR 15-29 5 Kidney failure <15 (or dialysis) 12 SEE RESULT BELOW Name: XAVIER POST : [address]: Jordyn Lion MD Acct: [id number] Unit: [id number] AGE: 56 Location: [facility] Re06/20/17 SEX: F Status: REG REF SPEC: [id number] PHIL: 06/20/17 [facility] DR: Jordyn Lion MD REQ: [id number] RECD: 06/20/17 STATUS: COMP _ SOURCE: STOOL SPDESC: ORDERED: C. diff PCR COMMENTS: Verbal to SHEREEN CLARK by [id number] at 1345 on 06/20/17. Results read back accurately. ATTEMPTED Verbal by [id number] at 1250 on 06/20/17. Procedure Result Reported Site Stool Specimen Description Final 06/20/17- 1156 ML Stool Color Brown Stool Form Nonformed Stool Consistency Soft C. difficile PCR Final 06/20/17- 1345 ML Organism 1 027 Presumptive NEGATIVE Organism 2 Toxigenic C.diff POSITIVE * ML - MAIN LAB ([facility]) . END OF REPORT * ML=Testing performed at Main Lab DEPARTMENT OF PATHOLOGY, [address] [place] [address] Tony Mondragon M.D. Director [facility] # [id number] SEE RESULT BELOW Name: XAVIER POST : [address]: Karmen Salamanca DO Acct: [id number] Unit: [id number] AGE: 56 Location: [facility] Re06/09/17 SEX: F Status: DEP REF SPEC: [id number] PHIL: 06/09/17-1630 [facility] DR: Karmen Salamanca DO REQ: [id number] RECD: 06/10/17-1403 STATUS: JENN NINO DR: Reanna Truong UROLOGIST _ SOURCE: GAS ANTRUM SPDESC: ORDERED: Clotest Procedure Result Reported Site Clotest Final 06/11/17- 0807 ML Clotest Negative * ML - MAIN LAB ([facility]) . END OF REPORT * ML=Testing performed at Main Lab DEPARTMENT OF PATHOLOGY, [address] [place] [address] Tony Mondragon M.D. Director [facility] # [id number] SEE RESULT BELOW Name: XAVIER POST : [address]: Karmen Salamanca DO Acct: [id number] Unit: [id number] AGE: 56 Location: [facility] Re06/09/17 SEX: F Status: DEP REF SPEC: [id number] PHIL: 06/09/17-1630 [facility] DR: Karmen Salamanca DO REQ: [id number] RECD: 06/10/17-140 STATUS: JENN NINO DR: Reanna Truong UROLOGIST _ SOURCE: GAS ANTRUM SPDESC: ORDERED: Clotest Procedure Result Reported Site Clotest Final 06/11/17- 0807 ML Clotest Negative * ML - MAIN LAB ([facility]) . END OF REPORT * ML=Testing performed at Main Lab DEPARTMENT OF PATHOLOGY, [address] [place] [address] Tony Mondragon M.D. Director [facility] # [id number] 14 [id number] SEE RESULT BELOW Name: XAVIER POST : [address]: Karmen Salamanca DO Acct: [id number] Unit: [id number] AGE: 56 Location: [facility] Re06/09/17 SEX: F Status: DEP REF SPEC: [id number] PHIL: 06/09/17-1457 [facility] [address]: Karmen Salamanca DO REQ: [id number] RECD: 06/10/17-1213 STATUS: BARBARA NINO DR: Reanna Truong UROLOGIST _ ORDERED: LEVEL 4/5 COMMENTS: [id number] FINAL DIAGNOSIS 1. Small bowel, duodenum, biopsy: -- Small bowel mucosa with normal villous architecture and no significant pathologic abnormality. 2. Stomach, antrum, biopsy: -- Gastric antral mucosa with single minute focus of chronic active inflammation. -- No Helicobacter pylori-like organisms are identified by H E microscopy. See comment. 3. Stomach, gastroesophageal junction, biopsy: -- Gastroesophageal junction zone mucosa with goblet cell/intestinal metaplasia. -- No dysplasia identified. -- No specific features of active reflux esophagitis identified. 4. Colon, random biopsies: -- Large intestinal mucosa with focal mild architectural disorder compatible with repair. -- No evidence of microscopic/lymphocytic light his, collagenous colitis or other chronic inflammatory bowel process identified. 5. Colon, rectum, biopsy: -- Hyperplastic polyp. Comment: An immunohistochemical stain for Helicobacter pylori-like organisms is pending with appropriate controls on part 2 and will be reported in an addendum. CLINICAL HISTORY Screening/Surveillance for malignancy in asymptomatic patient. 56 year old female with history of tubular adenoma polyps on colonoscopy in 2011. ? family history of colon cancer (sister); gastroesophageal reflux disease CONTINUED ON NEXT PAGE * ML=Testing performed at Main Lab DEPARTMENT OF PATHOLOGY, [address] [place] [address] Tony Mondragon M.D. Director [facility] # [id number] RUN DATE: 06/11/17 [facility] LAB LIVE PAGE 2 Patient: XAVIER POST Zurdo [id number] (Continued) POST-OPERATIVE DIAGNOSIS (Continued) POST-OPERATIVE DIAGNOSIS EGD: Normal duodenum with biopsy; pangastritis with biopsy and CLOtest; 2 cm hiatal hernia (39-37 cm) irregular Z-line at 34 cm with biopsy; normal mid and proximal esophagus with biopsy. Colon: normal terminal ileum, mild erythema in sigmoid; random colon biopsy; medium mouthed diverticula in sigmoid; medium non-bleeding internal hemorrhoids; non -thrombosed external hemorrhoids. Conclusions/Plan: Follow-up pathology; follow-up in office in 2 weeks GROSS DESCRIPTION 1. The specimen is received in formalin labeled, Biopsies Duodenum, and consists of two palma irregular soft tissue fragments measuring 0.5 x 0.1 x 0.1 cm and 0.6 x 0.2 x 0.1 cm which are submitted entirely in one cassette. 2. The specimen is received in formalin labeled, Biopsies Antrum Body, and consists of two palma irregular soft tissue fragments averaging 0.5 x 0.2 x 0.1 cm which are submitted entirely in one cassette. 3. The specimen is received in formalin labeled, Biopsies GE Junction, and consists of a 0.4 x 0.4 x 0.1 cm aggregate of palma-white irregular soft tissue fragments which is submitted entirely in one cassette. 4. The specimen is received in formalin labeled, Random Colon Biopsies, and consists of a 1.0 x 0.8 by up to 0.2 cm aggregate of palma irregular soft tissue fragments which is submitted entirely in one cassette. 5. The specimen is received in formalin labeled, Biopsy Rectal Polyp, and consists of a 0.6 x 0.5 x 0.1 cm aggregate of palma-white irregular soft tissue fragments which is submitted entirely in one cassette. Signed (signature on file) Tony Mondragon MD 1541 END OF REPORT * ML=Testing performed at Main Lab DEPARTMENT OF PATHOLOGY, [address] [place] [address] Tony Mondragon M.D. Director [facility] # [id number] SEE RESULT BELOW Name: XAVIER POST : [address]: Karmen Salamanca DO Acct: [id number] Unit: [id number] AGE: 56 Location: [facility] Re06/09/17 SEX: F Status: DEP REF SPEC: [id number] PHIL: 06/09/17-1457 [facility] DR: Karmen Salamanca DO REQ: [id number] RECD: 06/10/17 STATUS: BARBARA NINO DR: Reanna Truong UROLOGIST _ ORDERED: LEVEL 4/5 COMMENTS: [id number] FINAL DIAGNOSIS 1. Small bowel, duodenum, biopsy: -- Small bowel mucosa with normal villous architecture and no significant pathologic abnormality. 2. Stomach, antrum, biopsy: -- Gastric antral mucosa with single minute focus of chronic active inflammation. -- No Helicobacter pylori-like organisms are identified by H E microscopy. See comment. 3. Stomach, gastroesophageal junction, biopsy: -- Gastroesophageal junction zone mucosa with goblet cell/intestinal metaplasia. -- No dysplasia identified. -- No specific features of active reflux esophagitis identified. 4. Colon, random biopsies: -- Large intestinal mucosa with focal mild architectural disorder compatible with repair. -- No evidence of microscopic/lymphocytic light his, collagenous colitis or other chronic inflammatory bowel process identified. 5. Colon, rectum, biopsy: -- Hyperplastic polyp. Comment: An immunohistochemical stain for Helicobacter pylori-like organisms is pending with appropriate controls on part 2 and will be reported in an addendum. CLINICAL HISTORY Screening/Surveillance for malignancy in asymptomatic patient. 56 year old female with history of tubular adenoma polyps on colonoscopy in 2012. ? family history of colon cancer (sister); gastroesophageal reflux disease CONTINUED ON NEXT PAGE * ML=Testing performed at Main Lab DEPARTMENT OF PATHOLOGY, [address] [place] [address] Tony Mondragon M.D. Director [facility] # [id number] RUN DATE: 06/11/17 [facility] LAB LIVE PAGE 2 Patient: XAVIER POST [id number] (Continued) POST-OPERATIVE DIAGNOSIS (Continued) POST-OPERATIVE DIAGNOSIS EGD: Normal duodenum with biopsy; pangastritis with biopsy and CLOtest; 2 cm hiatal hernia (39-37 cm) irregular Z-line at 34 cm with biopsy; normal mid and proximal esophagus with biopsy. Colon: normal terminal ileum, mild erythema in sigmoid; random colon biopsy; medium mouthed diverticula in sigmoid; medium non-bleeding internal hemorrhoids; non -thrombosed external hemorrhoids. Conclusions/Plan: Follow-up pathology; follow-up in office in 2 weeks GROSS DESCRIPTION 1. The specimen is received in formalin labeled, Biopsies Duodenum, and consists of two palma irregular soft tissue fragments measuring 0.5 x 0.1 x 0.1 cm and 0.6 x 0.2 x 0.1 cm which are submitted entirely in one cassette. 2. The specimen is received in formalin labeled, Biopsies Antrum Body, and consists of two palma irregular soft tissue fragments averaging 0.5 x 0.2 x 0.1 cm which are submitted entirely in one cassette. 3. The specimen is received in formalin labeled, Biopsies GE Junction, and consists of a 0.4 x 0.4 x 0.1 cm aggregate of palma-white irregular soft tissue fragments which is submitted entirely in one cassette. 4. The specimen is received in formalin labeled, Random Colon Biopsies, and consists of a 1.0 x 0.8 by up to 0.2 cm aggregate of palma irregular soft tissue fragments which is submitted entirely in one cassette. 5. The specimen is received in formalin labeled, Biopsy Rectal Polyp, and consists of a 0.6 x 0.5 x 0.1 cm aggregate of palma-white irregular soft tissue fragments which is submitted entirely in one cassette. Signed (signature on file) Tony Mondragon MD 1541 END OF REPORT * ML=Testing performed at Main Lab DEPARTMENT OF PATHOLOGY, [address] [place] [address] Tony Mondragon M.D. Director [facility] # [id number] 16 Interpretation: Weak Positive (15.0-39.9) REFERENCE VALUE <15.0 (Negative) 17 Interpretation: Weak Positive (15.0-39.9) REFERENCE VALUE <15.0 (Negative) Test Performed by: [address] [id number] 18 Because ethnic data is not always readily available, this report includes an eGFR for both -Americans and non- Americans. The National Kidney Disease Education Program (NKDEP) does not endorse the use of the MDRD equation for patients that are not between the ages of 18 and 70, are , have extremes of body size, muscle mass, or nutritional status, or are non- or non-. According to the National Kidney Foundation, irrespective of diagnosis, the stage of the disease is based on the level of kidney function: Stage Description GFR(mL/min/1.73 m(2)) 1 Kidney damage with normal or decreased GFR 90 2 Kidney damage with mild decrease in GFR 60-89 3 Moderate decrease in GFR 30-59 4 Severe decrease in GFR 15-29 5 Kidney failure <15 (or dialysis) 19 Acute inflammation: >10.00 20 Because ethnic data is not always readily available, this report includes an eGFR for both -Americans and non- Americans. The National Kidney Disease Education Program (NKDEP) does not endorse the use of the MDRD equation for patients that are not between the ages of 18 and 70, are , have extremes of body size, muscle mass, or nutritional status, or are non- or non-. According to the National Kidney Foundation, irrespective of diagnosis, the stage of the disease is based on the level of kidney function: Stage Description GFR(mL/min/1.73 m(2)) 1 Kidney damage with normal or decreased GFR 90 2 Kidney damage with mild decrease in GFR 60-89 3 Moderate decrease in GFR 30-59 4 Severe decrease in GFR 15-29 5 Kidney failure <15 (or dialysis) 21 Interpretation: Weak Positive (15.0-39.9) REFERENCE VALUE <15.0 (Negative) Test Performed by: [address] [id number] 22 Because ethnic data is not always readily available, this report includes an eGFR for both -Americans and non- Americans. The National Kidney Disease Education Program (NKDEP) does not endorse the use of the MDRD equation for patients that are not between the ages of 18 and 70, are , have extremes of body size, muscle mass, or nutritional status, or are non- or non-. According to the National Kidney Foundation, irrespective of diagnosis, the stage of the disease is based on the level of kidney function: Stage Description GFR(mL/min/1.73 m(2)) 1 Kidney damage with normal or decreased GFR 90 2 Kidney damage with mild decrease in GFR 60-89 3 Moderate decrease in GFR 30-59 4 Severe decrease in GFR 15-29 5 Kidney failure <15 (or dialysis) 23 Desirable <200 Borderline high 200-239 High >239 24 Low <40 Desirable: 40-60 High: >60 25 Desirable: <100 mg/dL Near Optimal: 100-129 mg/dL Borderline High: 130-159 mg/dL High: 160-189 mg/dL Very High: >189 mg/dL 26 Desirable <150 Borderline high 150-199 High 200-499 Very High >500 27 FASTING 28 Desirable <150 Borderline high 150-199 High 200-499 Very High >500 29 Desirable <200 Borderline high 200-239 High >239 30 Because ethnic data is not always readily available, this report includes an eGFR for both -Americans and non- Americans. The National Kidney Disease Education Program (NKDEP) does not endorse the use of the MDRD equation for patients that are not between the ages of 18 and 70, are , have extremes of body size, muscle mass, or nutritional status, or are non- or non-. According to the National Kidney Foundation, irrespective of diagnosis, the stage of the disease is based on the level of kidney function: Stage Description GFR(mL/min/1.73 m(2)) 1 Kidney damage with normal or decreased GFR 90 2 Kidney damage with mild decrease in GFR 60-89 3 Moderate decrease in GFR 30-59 4 Severe decrease in GFR 15-29 5 Kidney failure <15 (or dialysis) 31 LDL Interpretation: Low Risk Optimal Level: LDL Less than 100 mg/dL Near or Above Optimal: LDL 100-129 mg/dL Borderline High Risk: LDL 130-159 mg/dL High Risk: LDL 160-189 mg/dL Very High Risk: LDL Greater than 189 mg/dL 32 HDL Interpretation: Undesirable: High Risk: Less than 40 mg/dL Desirable: Low Risk: Greater than 60 mg/dL 33 ---- RUN DATE: 06/12/11 [facility] NMI LIVE PAGE 1 RUN TIME: 940 Specimen Inquiry RUN USER: INTERFACE -- Name: XAVIER POST Status: REG REF Re06/10/11 Age/Sex: 50/F Unit#: [id number] Location: [facility] : [birth year] -- Specimen: [id number] SOUT Spec Date: 06/10/[address] [facility] [address]: Inderjit perez MD Spec Type: SURGICAL P Received: 06/10/11-1252 Copies to: Jordyn boland MD SPECIMEN BIOPSY COLON POLYP AT 20 CM. HISTORY POST-OP DIAGNOSIS: Colonoscopy to terminal ileum. Small sigmoid colon tete yp. Mild sigmoid diverticulosis. CLINICAL INFORMATION: History of diverticulitis. Family history of colon carcinoma (sister). GROSS DESCRIPTION The specimen is received in formalin labelled Xavier Post, Biopsy Colon Polyp at 20 cm., and consists of two palma, soft tissue fragments measuring 0.5 x 0.2 x 0.2 cm. in aggregate. Submitted entirely, one cassette. DIAGNOSIS Colon, 20 cm., biopsy: A. Tubular adenoma. B. No high grade dysplasia or malignancy. Signed Electronically by: TONY MONDRAGON MD 06/12/11 0940 -- -- DEPARTMENT OF PATHOLOGY, [address] [place] [address] [facility] Permit #[id number] Tony Mondragon M.D. Director Tiffany Abarca M.D. Poolroom/Poolhall Manager Dir sharad -- Procedures Date Code Description Status 06/10/2011 87594 Colonscopy+Biopsy Completed Encounters Type Date Location Provider Dx Diagnosis Office Visit 10/02/2017 Gastroenterology Nereyda Aguirre R19.7 Diarrhea, 11:15a [facility] BRUCE Brown unspecified R15.9 Full incontinence of feces Z87.19 Personal history of other diseases of the digestive system Office Visit 06/24/2017 Gastroenterology Corazon K22.70 [place]'s 2:15p [facility] [place], esophagus [employer]PER[employer] SPECIALIST-C without dysplasia A04.71 Enterocolitis due to Clostridium difficile, recurrent Office 04/07/2017 Gastroenterology Corazon K21.9 Gastro-esophageal Visit 1:30p [facility] [place], reflux disease [employer]IST-C without esophagitis Z86.010 Personal history of colonic polyps Z80.0 Family history of malignant neoplasm of digestive organs Office Visit 04/30/2011 Gastroenterology Inderjit De Los Santos 562.11 Diverticulitis 11:15a [facility] [place] BROWER Colon W/O Hemorrhage Plan of Treatment Future Appointment(s):06/16/2018 2:30 pm - Brian Pitt DO at [facility]enter[facility]04/28/2018 - BETI Rob19.7 Diarrhea , unspecifiedNew Xrays:X-Ray, Abdomen Supine, Ordered: 04/28/18
--- OUTSIDE RECORDS SUMMARY | 2018-05-21 08:28 | XMS REPORT | Continuity of Care Document ---
:1960 External Reference #:[id number] Author Name Alondra Plascencia O.D. Address [address] [place] [address] Care Team Providers Name Role Phone Reanna Truong NP Primary Care Physician Unavailable Payers Type Date Identification Numbers Payment Provider Subscriber Policy Number: [id number] [place]/[employer] Damaris Post PayID: [id number] [place] [address] Advance Directives Description No Information Available Problems Date Description Provider Status Onset: Costal chondritis Active Onset: Essential hypertension Active Onset: Temporomandibular joint disorder Active Onset: Postconcussion syndrome Active Onset: 10/05/2014 Refractory migraine Alondra Plascencia O.D. Active Onset: 10/05/2014 Hypermetropia Alondra Plascencia O.D. Active Onset: 10/05/2014 Presbyopia Alondra Plascencia O.D. Active Onset: Cerebrovascular accident Active Note: 10/02 Onset: Malignant melanoma Active Note: Face / Arms Onset: 05/05/2018 Migraine with typical aura Alondra Plascencia O.D. Active Onset: 05/05/2018 Regular astigmatism Alondra Plascencia O.D. Active Onset: 05/05/2018 Vitreous degeneration Alondra Plascencia O.D. Active Family History Date Family Member(s) Problem(s) Comments Father Cataract Mother Cataract Social History Type Date Description Comments Sex Unknown Marital Status Single Work Status Disabled ETOH Use Occasionally consumes alcohol Tobacco Use Start: Unknown Patient has never smoked Recreational Drug Use Denies Drug Use Smoking Status Reviewed: 05/05/18 Patient has never smoked Allergies, Adverse Reactions, Alerts Date Description Reaction Status Severity Comments 10/05/2014 Neosporin Active 10/05/2014 Bandaids Active Medications Medication Date Status Form Strength Qnty SIG Indications Ordering Provider Refresh 10/04/ Active Solution 1.4-0.6% up to Alondra Olson 2014 four Temo, times a O.D. day as needed Hydrocodone-Cornell 00/ Active Tablets 5-325mg Unknown taminophen 0000 Losartan / Active Tablets 50-12.5mg Varn, Potassium/Colby 0000 Reanna chlorothiazide EMPLOYEE RELATIONS SPECIALIST Multi Vitamin / Active Tablets Unknown Daily 0000 Vitamin D / Active Tablets 1000Unit every day Unknown 0000 Ondansetron / Active Tablets 4mg [place], 0000 Dispers Manohar Abreu M.D. Fluticasone / Active Suspension 50mcg/Act [place], Propionate 0000 Manohar Abreu M.D. Propranolol HCL / Active Caps ER 24HR 60mg Take One Unknown ER 0000 Capsule By Mouth Every Day Escitalopram / Active Tablets 10mg Take One Unknown Oxalate 0000 Tablet By Mouth Every Day Ibuprofen 00/ Active Tablets 800mg Varn, 0000 Reanna EMPLOYEE RELATIONS SPECIALIST Sumatriptan / Active Tablets 50mg Take 1 Unknown Succinate 0000 Tablet By Mouth as Directed May Repeat In 2 Hours If Still HAV Zyrtec Allergy 00// Active Capsules 10mg Unknown 0000 Aspirin / Active Tablets DR 81mg Unknown 0000 Fibercon / Active Tablets 625mg Unknown 0000 Methocarbamol / Hx Tablets 750mg Unknown 0000 - 2013 Immunizations Description No Information Available Vital Signs Description No Information Available Results Description No Information Available Procedures Date Code Description Status 10/23/2016 18742 Determination Of Refractive State Completed 10/23/2016 11297 Est Patient Comprehensive Exam Completed 10/05/2014 71596 Determination Of Refractive State Completed 10/05/2014 59368 Est Patient Comprehensive Exam Completed 08/26/2012 77986 Est Patient Comprehensive Exam Completed 03/06/2011 29812 Est Patient Intermediate Exam Completed 06/19/2010 09879 Est Patient Comprehensive Exam Completed 06/14/2009 33542 Est Patient Comprehensive Exam Completed 01/21/2007 70250 Determination Of Refractive State Completed 01/21/2007 55697 Est Patient Comprehensive Exam Completed Encounters Type Date Location Provider Dx Diagnosis Office Visit 03/26/2011 Brian Santiago, 346.80 Ocular Migraine 10:30a , jennifer Jenkins. Plan of Treatment 05/05/2018 - Alondra Plascencia O.D.H43.813 Vitreous degeneration, bilateralComments:You have Vitreous Floaters. If you have any changed in your floaters or flashing lights, please contact this office.Follow up:2 years You can expect to have your eyes dilated at your next visit. If Dr. Plascencia orders any additional testing, it may require extra time. We recommend that you bring sunglasses, as dilation drops often make you light sensitive until they wear off. We always recommend you bring someone to drive youhome if you are uncomfortable driving with your eyes dilated. If you have any questions before your next visit, feel free to call our office at .N02.4 PresbyopiaComments:You have presbyopia. This is when the lens in your eye loses the ability to change focus, and happens as we age. A pair of reading glasses will help you see up close.G43.109 Migraine with aura, not intractable, without status migrainosusComments:You have experienced an ocular migraine. This may or may not be associated with a headache. The visual phenomena you experience typically lasts for less than 1 hour, and should resolve completely. If this does not resolve completely or you notice any other changes to your vision, please call the office to be seen.
[2018-05-21 08:35] LABS: ABS Basophils 0.1 10^3/ul (0-0.2); ABS Eosinophils 0.2 10^3/ul (0-0.6); ABS Lymphocytes 1.2 10^3/ul (1.0-4.8); ABS Monocytes 0.5 10^3/ul (0-0.8); ABS Neutrophils 5.3 10^3/ul (1.5-7.7); ABS Nucleated RBC 0 10^3/ul; Eosinophil % 2.2 %; Hematocrit 47 % (35-47); Hemoglobin 16.1 g/dl (12.0-16.0); Mean Corpuscular HGB Conc 34 g/dl (31-36); Mean Corpuscular Hemoglobin 34 pg (27-31); Mean Corpuscular Volume 98 fL (80-97); Mean Platelet Volume 8.2 fL (7.4-10.4); Nucleated Red Blood Cells % 0.1; Platelet Count 243 10^3/ul (150-450); Red Blood Count 4.81 10^6/ul (4.00-5.40); Red Cell Distribution Width 14 % (10.5-15); White Blood Count 7.3 10^3/ul (3.5-10.8)
[2018-05-21 08:56] LABS: Albumin 3.8 g/dL (3.2-5.2); Albumin/Globulin Ratio 1.3 (1-3); BUN/Creatinine Ratio 11.3 (8-20); C Reactive Protein 2.35 mg/L (<8.01); Calcium 9.1 mg/dL (8.6-10.3); EGFR Non-African American 74.5 (>60); Total Bilirubin 0.8 mg/dL (0.2-1.0); Total Protein 6.8 g/dL (6.4-8.9)
--- NOTE | 2018-05-21 09:01 | ED ---
GI/ HPI - HPI Summary HPI Summary: This pt is a 57 y/o female presenting to [facility] c/o nausea, vomiting, and diarrhea since yesterday. Pt describes diarrhea "all day long yesterday, nonbloody. She reports vomiting began yesterday morning, described as nonbloody. Denies sick contacts at home. Pt also notes abd pain and dehydration. She has not been unable to take her medications for the past 2 days secondary to vomiting and diarrhea. She states she has had C. diff for the past 1.5 years. Pt has been seeing Dr. Pitt, GI, who told her she was taking too many medications. She reports Dr. Gilmore, neurologist, told her she had a vitamin B deficiency that was causing "some kind of" migraine. She now takes vitamin B QID as well as vitamin B shots. Pt notes she was evicted from where her parent's house and arrested at 05:00 am today. 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 Denies SI or HI. PMHx: C. diff, broken tail bone 05/09/18. - History of Current Complaint Chief Complaint: EDNauseaVomitDiarrh Stated Complaint: GENERAL ILLNESS Hx Obtained From: Patient Onset/Duration: Started Days Ago - 1, Still Present Timing: Lasting Days - 1 Current Severity: Moderate Pain Intensity: 4 Location of Pain: Suprapubic Associated Signs and Symptoms: Positive: Nausea, Vomiting, Abdominal Pain. Negative: Fever, Chills Aggravating Factor(s): Nothing Alleviating Factor(s): Nothing - Additional Pertinent History Primary Care Physician: MAREN - Allergy/Home Medications Allergies/Adverse Reactions: Allergies Allergy/AdvReac Type Severity Reaction Status Date / Time adhesive tape Allergy Rash Verified 05/21/18 08:42 bacitracin Allergy Rash Verified 05/21/18 08:42 [From Neosporin ([id number])] latex Allergy Rash Verified 05/21/18 08:42 neomycin Allergy Rash Verified 05/21/18 08:42 [From Neosporin ([id number])] polymyxin B Allergy Rash Verified 05/21/18 08:42 [From Neosporin ([id number])] Home Medications: Home Medications Potassium 10 meq PO DAILY 05/21/18 [History Confirmed 05/21/18] PMH/Surg Hx/FS Hx/Imm Hx Endocrine/Hematology History: Denies: Hx Diabetes Cardiovascular History: Reports: Hx Hypertension - ON MEDS Denies: Hx Congenital Heart Disease, Hx Pacemaker/ICD Respiratory History: Reports: Hx Asthma History: Denies: Hx Renal Disease Musculoskeletal History: Reports: Hx Arthritis, Other Musculoskeletal History - costochondritis Sensory History: Reports: Hx Contacts or Glasses Denies: Hx Legally Blind, Hx Deafness, Hx Hearing Aid Opthamlomology History: Reports: Hx Contacts or Glasses Denies: Hx Legally Blind Neurological History: Reports: Hx CVA - pt reported, Hx Migraine Psychiatric History: Reports: Hx Anxiety, Hx Depression Denies: Hx Panic Disorder - Cancer History Cancer Type, Location and Year: SKIN CARCINOMA FACE/ARMS/LEG. PRECANCEROUS CERVICAL Hx Chemotherapy: No Hx Radiation Therapy: No - Surgical History Surgery Procedure, Year, and Place: TMJ repair [place]. RIGHT achillies tendon repair [facility]. left knee arthroscopy 02/27 [facility]. fecal translplant Infectious Disease History: No Infectious Disease History: Reports: Hx Clostridium Difficile Denies: Traveled Outside the [place] in Last 30 Days - Family History Known Family History: Positive: Other - Blood cancer (sister) Negative: Cardiac Disease, Hypertension, Diabetes - Social History Alcohol Use: Occasionally Substance Use Type: Reports: None Hx Tobacco Use: No Smoking Status (MU): Never Smoked Tobacco Have You Smoked in the Last Year: No Review of Systems Constitutional: Other - POS: dehydration Negative: Fever, Chills Negative: Erythema Negative: Sore Throat Negative: Chest Pain Negative: Shortness Of Breath, Cough Positive: Abdominal Pain, Vomiting, Diarrhea, Nausea. Negative: Other - NEG: bloody stools Negative: dysuria, hematuria Negative: Myalgia, Edema Negative: Rash Neurological: Other - NEGATIVE: dizziness Negative: Other - NEG: SI or HI All Other Systems Reviewed And Are Negative: Yes Physical Exam - Summary Physical Exam Summary: Constitutional: Well-developed, Well-nourished, Alert. (-) Distressed Skin: Warm, Dry HENT: Normocephalic; Atraumatic Eyes: Conjunctiva normal Neck: Musculoskeletal ROM normal neck. (-) JVD, (-) Stridor, (-) Tracheal deviation Cardio: Rhythm regular, rate normal, Heart sounds normal; Intact distal pulses; The pedal pulses are 2+ and symmetric. Radial pulses are 2+ and symmetric. (-) Murmur Pulmonary/Chest wall: Effort normal. (-) Respiratory distress, (-) Wheezes, (-) Rales Abd: Soft, (-) Tenderness, (-) Distension, (-) Guarding, (-) Rebound Musculoskeletal: (-) Edema Lymph: (-) Cervical adenopathy Neuro: Alert, Oriented x3 Psych: Mood and affect Normal Triage Information Reviewed: Yes Vital Signs On Initial Exam: Initial Vitals Temp Pulse Resp BP Pulse Ox 97.7 F 106 20 149/75 98 05/21/18 07:54 05/21/18 07:54 05/21/18 07:54 05/21/18 07:54 05/21/18 07:54 Vital Signs Reviewed: Yes Diagnostics - Vital Signs Vital Signs Temp Pulse Resp BP Pulse Ox 05/21/18 07:54 97.7 F 106 20 149/75 98 - Laboratory Lab Results: Lab Results 05/21/18 05/21/18 Range/Units 08:26 08:26 WBC 7.3 (3.5-10.8) 10^3/ul RBC 4.81 (4.00-5.40) 10^6/ul Hgb 16.1 H (12.0-16.0) g/dl Hct 47 (35-47) % MCV 98 H (80-97) fL MCH 34 H (27-31) pg MCHC 34 (31-36) g/dl RDW 14 (10.5-15) % Plt Count 243 (150-450) 10^3/ul MPV 8.2 (7.4-10.4) fL Neut % (Auto) 72.7 % Lymph % (Auto) 17.0 % Park % (Auto) 7.4 % Eos % (Auto) 2.2 % Baso % (Auto) 0.7 % Absolute Neuts (auto) 5.3 (1.5-7.7) 10^3/ul Absolute Lymphs (auto) 1.2 (1.0-4.8) 10^3/ul Absolute Monos (auto) 0.5 (0-0.8) 10^3/ul Absolute Eos (auto) 0.2 (0-0.6) 10^3/ul Absolute Basos (auto) 0.1 (0-0.2) 10^3/ul Absolute Nucleated RBC 0 10^3/ul Nucleated RBC % 0.1 Lactic Acid 1.3 (0.5-2.0) mmol/L Result Diagrams: 05/21/18 08:26 05/21/18 08:26 Lab Statement: Any lab studies that have been ordered have been reviewed, and results considered in the medical decision making process. Re-Evaluation - Re-Evaluation First Eval Re-Evaluation Time: 11:26 Change: Improved Comment: Pt is eating crackers and feeling better. She will be discharged home with follow up from her PCP. GIGU Course/Dx - Course Assessment/Plan: Pt is a 57 y/o female, with dx C. diff, who presents to the ED with nausea, vomiting, and diarrhea since yesterday. Pt describes diarrhea "all day long yesterday, nonbloody. She reports vomiting began yesterday morning, described as nonbloody. Denies sick contacts at home. Pt also notes abd pain and dehydration. Labs remarkable for potassium of 2.7. Pt is on chronic potassium replacement but has not been tolerating it due to vomiting. In the ED course pt tolerated potassium chloride liquid. She also tolerated 2L of IV fluids and was given her daily medications. Pt is feeling better and is eating crackers without emesis. Pt was instructed to resume her potassium pills tomorrow. She will be discharged home with follow up from her PCP in 2-3 days. Pt was given a prescription for Zofran. She is advised to eat 3-4 bananas daily or 2-3 avocados daily. Pt was instructed to return to the ED for any worsening or new symptoms. - Diagnoses Provider Diagnoses: Hypokalemia, Gastroenteritis Discharge - Sign-Out/Discharge Documenting (check all that apply): Patient Departure - Discharge home - Discharge Plan Condition: Stable Disposition: HOME Prescriptions: Ondansetron ODT TAB* [Zofran 4 MG Odt TAB*] 4 mg PO Q8H PRN #12 tab.odt PRN Reason: Nausea/Vomiting Patient Education Materials: Hypokalemia (ED), Gastroenteritis (ED) Referrals: Reanna Truong NP [Primary Care Provider] - Additional Instructions: Resume your potassium pills tomorrow. You should eat 3-4 bananas daily or 2-3 avocados daily. Follow up with your primary care provider in 2-3 days. RETURN TO THE EMERGENCY DEPARTMENT FOR CHANGING OR WORSENING SYMPTOMS. - Attestation Statements Document Initiated by Scribe: Yes Documenting Scribe: Amna Ibarra Provider For Whom Scribe is Documenting (Include Credential): Sergei Camejo MD Scribe Attestation: Amna Martinez, scribed for Sergei Camejo MD on 05/21/18 at 1124. Status of Scribe Document: Ready
[2018-05-21 09:11] LABS: Potassium 2.7 mmol/L (3.5-5.0)
[2018-05-21 11:56] VITALS: BP 156/99
== END | disposition home or self-care (01) ==
LOC: ED 07:54
DX: E87.6 Hypokalemia (principal); K52.9 Noninfective gastroenteritis and colitis, unspecified; R11.2 Nausea with vomiting, unspecified; R10.9 Unspecified abdominal pain; R19.7 Diarrhea, unspecified; Z85.820 Personal history of malignant melanoma of skin
CPT/HCPCS: 36415; 80053; 83605; 83690; 85025; 86140; 96360; 96361; 99283; A9270-GY